=== PATIENT | male | born 1970 | race Caucasian/White ===

== ENCOUNTER 2019-04-15 20:20 | Emergency (ER) | payer OTHER ==
[~2019-04-15] VITALS: Ht 167.6 cm; Wt 68.2 kg
[2019-04-15 20:49] VITALS: BP 132/77
[2019-04-15 21:41] LABS: BASO # 0.1 x10^3/uL (0.0-0.2); BASO % 1 % (0-3); EOS % 0 % (0-3); HEMATOCRIT 40.9 % (39.0-53.0); HEMOGLOBIN 14.3 g/dL (13.0-17.5); LYMPH # 0.4 x10^3/uL (1.0-4.8); LYMPH % 3 % (24-48); MEAN CORPUSCULAR HEMOGLOBIN 31 pg (25-35); MEAN CORPUSCULAR HGB CONC 35 g/dL (31-37); MEAN CORPUSCULAR VOLUME 89 fL (79-100); MONO # 0.6 x10^3/uL (0.0-1.1); MONO % 5 % (0-9); NEUT % 91 % (31-73); PLATELET COUNT 174 x10^3/uL (140-400); RED BLOOD COUNT 4.58 x10^6/uL (4.30-5.70); WHITE BLOOD COUNT 13.1 x10^3/uL (4.0-11.0)
[2019-04-15 21:50] LABS: CALCIUM 8.6 mg/dL (8.5-10.1); CREATININE 1.6 mg/dL (0.7-1.3); GFR 45.8; POTASSIUM 4.1 mmol/L (3.5-5.1)
[2019-04-15 21:57] LABS: ALBUMIN 3.7 g/dL (3.4-5.0); ALBUMIN/GLOBULIN RATIO 1.2 (1.0-1.7); TOTAL BILIRUBIN 0.4 mg/dL (0.2-1.0); TOTAL PROTEIN 6.9 g/dL (6.4-8.2); URIC ACID 5.6 mg/dL (3.5-7.2)
--- NOTE | 2019-04-15 22:04 | RAD ---
Right Lower Extremity Venous Doppler Ultrasound History: Comparison: None Procedure: Color flow, duplex, spectral analysis and 2D images are obtained with and without compression in the area of the common femoral vein, superficial femoral vein - femoral vein junction, main femoral vein (superficial femoral vein) and popliteal vein. Veins of the proximal calf are also imaged. Findings: There is normal duplex flow, color flow and compressibility of all visualized vein segments. No evidence of deep venous thrombus is present. There is complex fluid anterior to the patella. Impression: No evidence of DVT. Edema anteriorly could be secondary to bursitis. Electronically signed by: Gaston Fernandez III, MD (04/15/2019 10:01 PM) [facility]
[2019-04-15 22:20] LABS: % BANDS 12 % (0-9); % BASOS 1 % (0-3); % LYMPHS 6 % (24-48); % MONOS 8 % (0-10); % SEGS 73 % (35-66); PLT ESTIMATE ADEQUATE (ADEQUATE)
[2019-04-15] MEDS ORDERED: AMOX1TAB61 PO (22:52)
[2019-04-15] MEDS ORDERED: DOXY100C2 PO (22:52)
--- NOTE | 2019-04-15 22:52 | PHYS DOC ---
Past Medical History Past Medical History: No Pertinent History Past Surgical History: Tonsillectomy Additional Past Surgical Histo: RIGHT ANKLE SX Alcohol Use: None Adult General Chief Complaint Chief Complaint: KNEE SWELLING HPI HPI Patient is a 49 year old male who presents with R knee pain that has been ongoing since last night. He states he had a cut on the front of his knee. Denies any other symptoms. Complete ROS were reviewed and found to be within normal limits, except as documented in the HPI Allergies Allergies Allergies Coded Allergies Type Severity Reaction Last Updated Verified No Known Drug Allergies 04/15/19 No Physical Exam Physical Exam Constitutional: Well developed, well nourished, no acute distress, non-toxic appearance. [] HENT: Normocephalic, atraumatic, bilateral external ears normal, oropharynx moist, no oral exudates, nose normal. [] Eyes: PERRLA, EOMI, conjunctiva normal, no discharge. [] Back: No tenderness, no CVA tenderness. [] Extremities: Tenderness to R knee with erythema. Able to fully straighten knee. Has cut on anterior of knee. Neurologic: Alert and oriented X 3, normal motor function, normal sensory function, no focal deficits noted. [] Psychologic: Affect normal, judgement normal, mood normal. [] Current Patient Data Vital Signs Vital Signs Date Time Temp Pulse Resp B/P (MAP) Pulse Ox O2 Delivery O2 Flow Rate FiO2 04/15/19 20:49 100.7 109 18 132/77 (95) 98 Room Air 100.7 Lab Values Laboratory Tests Test 04/15/19 21:33 White Blood Count 13.1 x10^3/uL (4.0-11.0) H Red Blood Count 4.58 x10^6/uL (4.30-5.70) Hemoglobin 14.3 g/dL (13.0-17.5) Hematocrit 40.9 % (39.0-53.0) Mean Corpuscular Volume 89 fL (79-100) Mean Corpuscular Hemoglobin 31 pg (25-35) Mean Corpuscular Hemoglobin Concent 35 g/dL (31-37) Red Cell Distribution Width 13.0 % (11.5-14.5) Platelet Count 174 x10^3/uL (140-400) Neutrophils (%) (Auto) 91 % (31-73) H Lymphocytes (%) (Auto) 3 % (24-48) L Monocytes (%) (Auto) 5 % (0-9) Eosinophils (%) (Auto) 0 % (0-3) Basophils (%) (Auto) 1 % (0-3) Neutrophils # (Auto) 12.0 x10^3/uL (1.8-7.7) H Lymphocytes # (Auto) 0.4 x10^3/uL (1.0-4.8) L Monocytes # (Auto) 0.6 x10^3/uL (0.0-1.1) Eosinophils # (Auto) 0.0 x10^3/uL (0.0-0.7) Basophils # (Auto) 0.1 x10^3/uL (0.0-0.2) Segmented Neutrophils % 73 % (35-66) H Band Neutrophils % 12 % (0-9) H Lymphocytes % 6 % (24-48) L Monocytes % 8 % (0-10) Basophils % 1 % (0-3) Platelet Estimate Adequate (ADEQUATE) Sodium Level 143 mmol/L (136-145) Potassium Level 4.1 mmol/L (3.5-5.1) Chloride Level 105 mmol/L (98-107) Carbon Dioxide Level 30 mmol/L (21-32) Anion Gap 8 (6-14) Blood Urea Nitrogen 25 mg/dL (8-26) Creatinine 1.6 mg/dL (0.7-1.3) H Estimated GFR (Cockcroft-Gault) 45.8 BUN/Creatinine Ratio 16 (6-20) Glucose Level 99 mg/dL (70-99) Uric Acid 5.6 mg/dL (3.5-7.2) Calcium Level 8.6 mg/dL (8.5-10.1) Total Bilirubin 0.4 mg/dL (0.2-1.0) Aspartate Amino Transferase (AST) 27 U/L (15-37) Alanine Aminotransferase (ALT) 27 U/L (16-63) Alkaline Phosphatase 55 U/L (46-116) Total Protein 6.9 g/dL (6.4-8.2) Albumin 3.7 g/dL (3.4-5.0) Albumin/Globulin Ratio 1.2 (1.0-1.7) Laboratory Tests 04/15/19 21:33 Laboratory Tests 04/15/19 21:33 EKG EKG [] Radiology/Procedures Radiology/Procedures [] Course & Med Decision Making Course & Med Decision Making Pertinent Labs and Imaging studies reviewed. (See chart for details) Will get labs and ultrasound. Workup is unremarkable. Ultrasound is negative for DVT. Appears to have cellulitis of knee. Will place on Doxycycline and Augmentin. Dragon Disclaimer Dragon Disclaimer This electronic medical record was generated, in whole or in part, using a voice recognition dictation system. Departure Departure Impression: Primary Impression: Cellulitis Disposition: HOME, SELF-CARE Condition: STABLE Referrals: NO PCP (PCP) Patient Instructions: Cellulitis Additional Instructions: Thank you for visiting [facility]. We appreciate you trusting us with your care. If any additional problems come up don't hesitate to return to visit us. Please follow up with your primary care provider so they can plan add itional care if needed and know about the problem that you had. If symptoms worsen come back to the Emergency Department. Any concerning symptoms that start such as chest pain, shortness of air, weakness or numbness on one side of the body, running high fevers or any other concerning symptoms return to the ER. You have been prescribed an antibiotic today to help fight your infection. Please take all of the antibiotic as directed. If after 48 hours the infection is not improving, please return for more care. If the infection worsens, return to ER for additional care. Scripts Amoxicillin/Potassium Clav (AUGMENTIN 875-125 TABLET) 1 Each Tablet 1 TAB PO BID for 7 Days, #14 TAB 0 Refills Prov: LORRAINE TORRE APRN 04/15/19 Doxycycline Hyclate (DOXYCYCLINE HYCLATE) 100 Mg Capsule 1 CAP PO BID for 10 Days, #20 CAP Prov: LORRAINE TORRE APRN 04/15/19 Problem Qualifiers Primary Impression: Cellulitis Site of cellulitis: extremity Site of cellulitis of extremity: lower extremity Laterality: right Qualified Codes: L03.115 - Cellulitis of right lower limb LORRAINE TORRE APRN Apr 15, 2019 22:52
== END 2019-04-15 23:04 | disposition home or self-care (01) ==
LOC: ER 20:20
DX: L03.115 Cellulitis of right lower limb (principal)
CPT/HCPCS: 36415; 80053; 84550; 85007; 85025; 93971; 99285-25

== ENCOUNTER 2019-05-02 12:01 | Observation (INO) | payer OTHER ==
[~2019-05-02] VITALS: Ht 167.6 cm; Wt 70.1 kg
[~2019-05-02 12:01] MED LIST: ACET325T9 PO; ALBU2.5V8 NEB; AMOX1TAB61 PO; ASPI325T8 PO; DOCU-153 PO; DOXY100C2 PO; HYDR-2765 PO; LACT1CAP19 PO; LINE600T12 PO; MULT1TAB90 PO
--- NOTE | 2019-05-02 13:11 | RAD ---
EXAM: Chest, single view. HISTORY: Syncope. COMPARISON: None. FINDINGS: A frontal view of the chest is obtained. There is no infiltrate, pleural effusion or pneumothorax. The heart is normal in size. IMPRESSION: No acute pulmonary finding. Electronically signed by: Jayleen Mccann MD (05/02/2019 1:08 PM) [facility]
[2019-05-02 13:15] LABS: BASO # 0.1 x10^3/uL (0.0-0.2); BASO % 1 % (0-3); EOS # 0.1 x10^3/uL (0.0-0.7); EOS % 1 % (0-3); HEMATOCRIT 36.5 % (39.0-53.0); HEMOGLOBIN 12.2 g/dL (13.0-17.5); LYMPH # 1.6 x10^3/uL (1.0-4.8); LYMPH % 19 % (24-48); MEAN CORPUSCULAR HEMOGLOBIN 31 pg (25-35); MEAN CORPUSCULAR HGB CONC 34 g/dL (31-37); MEAN CORPUSCULAR VOLUME 91 fL (79-100); MONO # 0.6 x10^3/uL (0.0-1.1); MONO % 7 % (0-9); NEUT # 6.4 x10^3/uL (1.8-7.7); NEUT % 73 % (31-73); PLATELET COUNT 460 x10^3/uL (140-400); RED BLOOD COUNT 4.01 x10^6/uL (4.30-5.70); RED CELL DISTRIBUTION WIDTH 13.4 % (11.5-14.5); WHITE BLOOD COUNT 8.7 x10^3/uL (4.0-11.0)
[2019-05-02 13:26] LABS: CREATININE 1.3 mg/dL (0.7-1.3); GFR 58.2; POTASSIUM 4.2 mmol/L (3.5-5.1)
[2019-05-02 13:36] LABS: ALBUMIN/GLOBULIN RATIO 0.6 (1.0-1.7); MAGNESIUM 2.1 mg/dL (1.8-2.4); TOTAL BILIRUBIN 0.5 mg/dL (0.2-1.0); TOTAL PROTEIN 7.7 g/dL (6.4-8.2)
--- NOTE | 2019-05-02 13:44 | RAD ---
EXAM: CT Head without IV contrast INDICATION: Syncope, fall, head and facial injury. TECHNIQUE: Multi-detector row CT images were obtained of the head without the use of IV contrast. All CT scans performed at this facility utilize dose optimization techniques as appropriate to the exam, including the following: Automated exposure control and adjustment of the mA and/or KV according to patient size (this includes techniques or standardized protocols for targeted exams where dose is indication/reason for exam). COMPARISON: None FINDINGS: BRAIN PARENCHYMA: No evidence of acute intraparenchymal hemorrhage or infarct. No abnormal parenchymal density or mass. VENTRICLES & EXTRA-AXIAL SPACES: Ventricles are within normal limits. Basilar cisterns are patent. No pathologic extra-axial fluid collection or mass. ORBITS: Orbital contents are unremarkable. SINUSES: Visualized paranasal sinuses and mastoid air cells are clear. OSSEOUS & SOFT TISSUES: Calvarium and skull base are intact. IMPRESSION: No acute intracranial pathology. EXAM: CT Maxillofacial with IV contrast INDICATION: Syncope, fall, head and facial injury. TECHNIQUE: Multi-detector row CT images were obtained through the maxillofacial region with the use of IV contrast. Post-processing reconstructed images were obtained for interpretation. All CT scans performed at this facility utilize dose optimization techniques as appropriate to the exam, including the following: Automated exposure control and adjustment of the mA and/or KV according to patient size (this includes techniques or standardized protocols for targeted exams where dose is indication/reason for exam). IV CONTRAST: Administered COMPARISON: None FINDINGS: OSSEOUS: No evidence of fracture or bone destruction. Mild degenerative spondylosis at C3-C4 in the upper cervical spine is incidentally noted. VISUALIZED INTRACRANIAL STRUCTURES: Unremarkable. ORBITS: Orbital contents are unremarkable.. SINUSES: Visualized paranasal sinuses and mastoid air cells are clear. SOFT TISSUES: Unremarkable. IMPRESSION: Normal CT maxillofacial with contrast. Electronically signed by: Rodney Martiin MD (05/02/2019 1:41 PM) [facility]
--- NOTE | 2019-05-02 13:51 | EKG ---
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
[2019-05-02] MEDS ORDERED: IOHEXOL 350 MG/ML 100 ML VIAL. IV ONE (14:15)
[2019-05-02] MEDS ORDERED: IV NORMAL SALINE 1000ML BAG 1,000 ML IV ONE ×2 (14:30→15:30)
--- NOTE | 2019-05-02 14:36 | RAD ---
CTA scan of the Chest with Contrast (Pulmonary Embolism protocol) 05/02/2019 Clinical History: History of recent surgery. Syncope. Elevated d-dimer. Technique: After the intravenous administration of 75 cc of Omnipaque 350, contiguous, 0.625 mm axial sections were obtained through the chest. 2 mm axial and 3D MIP coronal and sagittal reconstructed images were obtained. One or more of the following individualized dose reduction techniques were utilized for this study: 1. Automated exposure control. 2. Adjustment of the mA and/or kV according to patient size. 3. Use of iterative reconstruction technique. Findings: No filling defect is seen within the major branches of either pulmonary artery. There is no CT evidence of pulmonary embolism. The heart and thoracic aorta are within normal limits. No pulmonary infiltrate, pleural effusion or pneumothorax is seen. Impression: There is no CT evidence of pulmonary embolism. Electronically signed by: Parveen Looney MD (05/02/2019 2:34 PM) [id number]
--- NOTE | 2019-05-02 14:45 | PHYS DOC ---
Past Medical History Past Medical History: Other Additional Past Medical Histor: SEPSIS/CELLULITIS Past Surgical History: Tonsillectomy Additional Past Surgical Histo: RIGHT ANKLE SX Smoking Status: Never Smoker Alcohol Use: Occasionally Adult General Chief Complaint Chief Complaint: SYNCOPE HPI HPI Patient is a 49 year old male with history of right knee cellulitis and abscess and sepsis secondary to knee infection with recent hospitalization on April 23 who presents with complaint of syncope. Patient states he was initially over at 5:30 this morning and felt nauseous and hot and had syncope iin the shower and tried to get up after 1 minute and had another episode of syncope with a fall and injury to his nose. Patient tried to call her physician after opening the office and they recommended to come to the emergency room. Patient states he had some episodes of shortness of breath for the last couple days and denies chest pain, fever and chills, focal neuro deficit. Review of Systems Review of Systems Constitutional: Denies fever or chills [] Eyes: Denies change in visual acuity, redness, or eye pain [] HENT: Denies nasal congestion or sore throat [] Respiratory: Denies cough or shortness of breath [] Cardiovascular: No additional information not addressed in HPI [] GI: Denies abdominal pain, nausea, vomiting, bloody stools or diarrhea [] : Denies dysuria or hematuria [] Musculoskeletal: Denies back pain or joint pain [] Integument: Denies rash or skin lesions [] Neurologic: Denies headache, focal weakness or sensory changes [] Endocrine: Denies polyuria or polydipsia [] All other systems were reviewed and found to be within normal limits, except as documented in this note. Current Medications Current Medications Current Medications Medications (Trade) Dose Ordered Sig/Sindhu Start Time Stop Time Status Last Admin Dose Admin Iohexol (Omnipaque 350 Mg/ml) 75 ml 1X ONCE 05/02/19 14:15 05/02/19 14:20 DC 05/02/19 14:16 75 ML Sodium Chloride 1,000 ml @ 1,000 mls/hr 1X ONCE 05/02/19 14:30 05/02/19 15:29 DC 05/02/19 15:28 1,000 MLS/HR Allergies Allergies Allergies Coded Allergies Type Severity Reaction Last Updated Verified vancomycin Allergy Intermediate RASH/ITCHING 04/17/19 Yes Physical Exam Physical Exam Constitutional: Well developed, well nourished, mild distress, non-toxic appearance. [] HENT: Normocephalic, contusion and small abrasion of base of nose Eyes: PERRLA, EOMI, conjunctiva normal, no discharge. [] Neck: Normal range of motion, no tenderness, supple, no stridor. [] Cardiovascular:Heart rate regular rhythm, no murmur [] Lungs & Thorax: Bilateral breath sounds clear to auscultation [] Abdomen: Bowel sounds normal, soft, no tenderness, no masses, no pulsatile masses. [] Skin: Warm, dry, no erythema, no rash. [] Back: No tenderness, no CVA tenderness. [] Extremities: Right lower extremity with trace edema of leg and moderate edema and mild erythema of knee Neurologic: Alert and oriented X 3, no focal deficits noted. [] Psychologic: Affect normal, judgement normal, mood normal. [] Current Patient Data Vital Signs Vital Signs Date Time Temp Pulse Resp B/P (MAP) Pulse Ox O2 Delivery O2 Flow Rate FiO2 05/02/19 13:14 86 19 109/68 (82) 99 Room Air 05/02/19 12:15 98.1 98.1 Lab Values Laboratory Tests Test 05/02/19 12:33 White Blood Count 8.7 x10^3/uL (4.0-11.0) Red Blood Count 4.01 x10^6/uL (4.30-5.70) L Hemoglobin 12.2 g/dL (13.0-17.5) L Hematocrit 36.5 % (39.0-53.0) L Mean Corpuscular Volume 91 fL (79-100) Mean Corpuscular Hemoglobin 31 pg (25-35) Mean Corpuscular Hemoglobin Concent 34 g/dL (31-37) Red Cell Distribution Width 13.4 % (11.5-14.5) Platelet Count 460 x10^3/uL (140-400) H Neutrophils (%) (Auto) 73 % (31-73) Lymphocytes (%) (Auto) 19 % (24-48) L Monocytes (%) (Auto) 7 % (0-9) Eosinophils (%) (Auto) 1 % (0-3) Basophils (%) (Auto) 1 % (0-3) Neutrophils # (Auto) 6.4 x10^3/uL (1.8-7.7) Lymphocytes # (Auto) 1.6 x10^3/uL (1.0-4.8) Monocytes # (Auto) 0.6 x10^3/uL (0.0-1.1) Eosinophils # (Auto) 0.1 x10^3/uL (0.0-0.7) Basophils # (Auto) 0.1 x10^3/uL (0.0-0.2) D-Dimer (Lara) 4.97 ug/mlFEU (0.00-0.50) H Sodium Level 141 mmol/L (136-145) Potassium Level 4.2 mmol/L (3.5-5.1) Chloride Level 104 mmol/L (98-107) Carbon Dioxide Level 31 mmol/L (21-32) Anion Gap 6 (6-14) Blood Urea Nitrogen 24 mg/dL (8-26) Creatinine 1.3 mg/dL (0.7-1.3) Estimated GFR (Cockcroft-Gault) 58.2 BUN/Creatinine Ratio 18 (6-20) Glucose Level 100 mg/dL (70-99) H Lactic Acid Level 1.3 mmol/L (0.4-2.0) Calcium Level 9.0 mg/dL (8.5-10.1) Magnesium Level 2.1 mg/dL (1.8-2.4) Total Bilirubin 0.5 mg/dL (0.2-1.0) Aspartate Amino Transferase (AST) 18 U/L (15-37) Alanine Aminotransferase (ALT) 32 U/L (16-63) Alkaline Phosphatase 80 U/L (46-116) Creatine Kinase 45 U/L (39-308) Troponin I Quantitative < 0.017 ng/mL (0.000-0.055) Total Protein 7.7 g/dL (6.4-8.2) Albumin 3.0 g/dL (3.4-5.0) L Albumin/Globulin Ratio 0.6 (1.0-1.7) L Laboratory Tests 05/02/19 12:33 Laboratory Tests 05/02/19 12:33 EKG EKG EKG interpreted by me. EKG at 1222 showed normal sinus rhythm at rate of 86, nonspecific ST abnormality with artifact, no acute ST and T-wave elevation. Radiology/Procedures Radiology/Procedures [][facility] [address] [place] [address] IMAGING REPORT Signed PATIENT: MYNOR ZAVALETA AACCOUNT: [id number] : 1970 LOCATION: ER AGE: 49 SEX: M EXAM STATUS: REG ER ORD. PHYSICIAN: GABRIELLE GALVAN MD REASON: syncope PROCEDURE: PORTABLE CHEST 1V EXAM: Chest, single view. HISTORY: Syncope. COMPARISON: None. FINDINGS: A frontal view of the chest is obtained. There is no infiltrate, pleural effusion or pneumothorax. The heart is normal in size. IMPRESSION: No acute pulmonary finding. Electronically signed by: Jayleen Alvarez MD (05/02/2019 1:08 PM) [facility] DICTATED and SIGNED BY: JAYLEEN ALVAREZ MD DATE: 05/02/19 1308 [facility] [address] [place] [address] IMAGING REPORT Signed PATIENT: MYNOR ZAVALETA AACCOUNT: [id number] : 1970 LOCATION: ER AGE: 49 SEX: M EXAM STATUS: REG ER ORD. PHYSICIAN: GABRIELLE GALVAN MD REASON: syncope, fall, head and facial injury PROCEDURE: CT HEAD AND MAXILLOFACIAL WO EXAM: CT Head without IV contrast INDICATION: Syncope, fall, head and facial injury. TECHNIQUE: Multi-detector row CT images were obtained of the head without the use of IV contrast. All CT scans performed at this facility utilize dose optimization techniques as appropriate to the exam, including the following: Automated exposure control and adjustment of the mA and/or KV according to patient size (this includes techniques or standardized protocols for targeted exams where dose is indication/reason for exam). COMPARISON: None FINDINGS: BRAIN PARENCHYMA: No evidence of acute intraparenchymal hemorrhage or infarct. No abnormal parenchymal density or mass. VENTRICLES & EXTRA-AXIAL SPACES: Ventricles are within normal limits. Basilar cisterns are patent. No pathologic extra-axial fluid collection or mass. ORBITS: Orbital contents are unremarkable. SINUSES: Visualized paranasal sinuses and mastoid air cells are clear. OSSEOUS & SOFT TISSUES: Calvarium and skull base are intact. IMPRESSION: No acute intracranial pathology. EXAM: CT Maxillofacial with IV contrast INDICATION: Syncope, fall, head and facial injury. TECHNIQUE: Multi-detector row CT images were obtained through the maxillofacial region with the use of IV contrast. Post-processing reconstructed images were obtained for interpretation. All CT scans performed at this facility utilize dose optimization techniques as appropriate to the exam, including the following: Automated exposure control and adjustment of the mA and/or KV according to patient size (this includes techniques or standardized protocols for targeted exams where dose is indication/reason for exam). IV CONTRAST: Administered COMPARISON: None FINDINGS: OSSEOUS: No evidence of fracture or bone destruction. Mild degenerative spondylosis at C3-C4 in the upper cervical spine is incidentally noted. VISUALIZED INTRACRANIAL STRUCTURES: Unremarkable. ORBITS: Orbital contents are unremarkable.. SINUSES: Visualized paranasal sinuses and mastoid air cells are clear. SOFT TISSUES: Unremarkable. IMPRESSION: Normal CT maxillofacial with contrast. Electronically signed by: Elroy Martini MD (05/02/2019 1:41 PM) [facility] DICTATED and SIGNED BY: ELROY MARTINI MD DATE: 05/02/19 1341 [facility] [address] [place] [address] IMAGING REPORT Signed PATIENT: MYNOR ZAVALETA AACCOUNT: [id number] : 1970 LOCATION: ER AGE: 49 SEX: M EXAM STATUS: REG ER ORD. PHYSICIAN: GABRIELLE GALVAN MD REASON: recent surgery, syncope, elevated d-dimer PROCEDURE: CT ANGIOGRAPHY CHEST CTA scan of the Chest with Contrast (Pulmonary Embolism protocol) 05/02/2019 Clinical History: History of recent surgery. Syncope. Elevated d-dimer. Technique: After the intravenous administration of 75 cc of Omnipaque 350, contiguous, 0.625 mm axial sections were obtained through the chest. 2 mm axial and 3D MIP coronal and sagittal reconstructed images were obtained. One or more of the following individualized dose reduction techniques were utilized for this study: 1. Automated exposure control. 2. Adjustment of the mA and/or kV according to patient size. 3. Use of iterative reconstruction technique. Findings: No filling defect is seen within the major branches of either pulmonary artery. There is no CT evidence of pulmonary embolism. The heart and thoracic aorta are within normal limits. No pulmonary infiltrate, pleural effusion or pneumothorax is seen. Impression: There is no CT evidence of pulmonary embolism. Electronically signed by: Kehinde Looney MD (05/02/2019 2:34 PM) [id number] DICTATED and SIGNED BY: KEHINDE LOONEY MD DATE: 05/02/19 1434 Course & Med Decision Making Course & Med Decision Making Pertinent Labs and Imaging studies reviewed. (See chart for details) Evaluation of patient in ER showed 49-year-old male patient with recent hospitalization and complaining of episode of syncope. Patient had unremarkable physical exam except for improving right knee cellulitis. Patient had elevation of d-dimer with negative CT of chest for PE. Patient treated with IV fluids. Patient requiring admission for further evaluation and treatment. Discussed with Dr. Flores who is in agreement with admission. Discussed findings and plan with patient and family, who acknowledge understanding and agreement. Dragon Disclaimer Dragon Disclaimer This electronic medical record was generated, in whole or in part, using a voice recognition dictation system. Departure Departure Impression: Primary Impression: Syncope Disposition: 09 ADMITTED INPATIENT (at 1444) Admitting Physician: JAJA (Dr. Flores accepted admission at 1456) Condition: IMPROVED Referrals: NO PCP (PCP) Problem Qualifiers Primary Impression: Syncope Syncope type: unspecified Qualified Codes: R55 - Syncope and collapse GABRIELLE GALVAN MD May 02, 2019 14:45
--- NOTE | 2019-05-02 15:19 | PDOC1 ---
History and Physical Date of Admission Date of Admission DATE: 05/02/19 TIME: 15:11 Identification/Chief Complaint Chief Complaint i passed out Source Source: Chart review, Patient History of Present Illness History of Present Illness Very pleasant 49 year old with no significant PMhx who presents to the hospital after 2 episodes of syncope and collapse this morning while taking a shower for the first time. denies any prodrome of chest pain sob palpitations prior to collapse. no reported focal weakness. hx not consistent with seizure like episode. denies any cardiac hx. oral intake has been good and he ate breakfast this AM prior to collapse. patient recently admitted last week for right knee bursitis s/p I and D. sent home on zyvox. states he has been intermittently nauseous but no vomiting for abx. was sent home on 2 week course of zyvox. unclear of orthostatics checked in ED. all imaging negative in ED including chest xray, CT chest, CT head and CT face. no fractures. EKG NSR. trops negati ve. [facility] called for admission and further evaluation. Past Medical History Cardiovascular: No pertinent hx Past Surgical History Past Surgical History: No pertinent history Family History Family History no cardiac hx Family History: Other Social History Smoke: No ALCOHOL: none Drugs: None Current Problem List Problem List Problems Medical Problems: (1) Syncope Status: Acute Current Medications Current Medications Current Medications Iohexol (Omnipaque 350 Mg/ml) 75 ml 1X ONCE IV Last administered on 05/02/19at 14:16; Start 05/02/19 at 14:15; Stop 05/02/19 at 14:20; Status DC Sodium Chloride 1,000 ml @ 1,000 mls/hr 1X ONCE IV ; Start 05/02/19 at 14:30; Stop 05/02/19 at 15:29 Active Scripts Active Culturelle (Lactobacillus Rhamnosus Gg) 1 Each Cap.sprink 1 Cap PO BID 30 Days Dok (Docusate Sodium) 100 Mg Capsule 100 Mg PO BID 10 Days Tylenol (Acetaminophen) 325 Mg Tablet 650 Mg PO PRN Q4HRS PRN 10 Days Thera-M Tablet (Multivits,Ca,Minerals/Iron/Fa) 1 Each Tablet 1 Tab PO DAILY Hydrocodone-Apap 7.5-325 (Hydrocodone Bit/Acetaminophen) 1 Tab Tablet 1 Tab PO PRN Q4HRS PRN Aspirin 325 Mg Tablet 325 Mg PO DAILYWBKFT Zyvox (Linezolid) 600 Mg Tablet 600 Mg PO BID Allergies Allergies: Coded Allergies: vancomycin (Verified Allergy, Intermediate, RASH/ITCHING, 04/17/19) ROS Review of System CONSTITUTIONAL: No fever or chills EYES: No recent changes SKIN: No rash or itching CARDIOVASCULAR: No chest pain, syncope, palpitations, or edema RESPIRATORY: No SOB or cough GASTROINTESTINAL: No nausea, vomiting or abdominal pain NEUROLOGICAL: No headaches or weakness ENDOCRINE: No cold or heat intolerance GENITOURINARY: No urgency or frequency of urination MUSCULOSKELETAL: No back pain or joint pain LYMPHATICS: No enlarged lymph nodes PSYCHIATRIC: No anxiety or depression Physical Exam Physical Exam GENERAL: No apparent distress. Alert and oriented. HEENT: Head normocephalic, atraumatic. NECK: Supple LUNGS: Clear to auscultation. HEART: RRR, S1, S2 present, pulses intact ABDOMEN: Soft, positive bowel sounds. EXTREMITIES: No cyanosis or edema. NEUROLOGIC: Normal speech, normal tone PSYCHIATRIC: Normal affect, normal mood. SKIN: No ulceration. Vitals Vitals Vital Signs Date Time Temp Pulse Resp B/P (MAP) Pulse Ox O2 Delivery O2 Flow Rate FiO2 05/02/19 13:14 86 19 109/68 (82) 99 Room Air 05/02/19 12:15 98.1 98.1 Labs Labs Laboratory Tests Test 05/02/19 12:33 White Blood Count 8.7 x10^3/uL (4.0-11.0) Red Blood Count 4.01 x10^6/uL (4.30-5.70) Hemoglobin 12.2 g/dL (13.0-17.5) Hematocrit 36.5 % (39.0-53.0) Mean Corpuscular Volume 91 fL (79-100) Mean Corpuscular Hemoglobin 31 pg (25-35) Mean Corpuscular Hemoglobin Concent 34 g/dL (31-37) Red Cell Distribution Width 13.4 % (11.5-14.5) Platelet Count 460 x10^3/uL (140-400) Neutrophils (%) (Auto) 73 % (31-73) Lymphocytes (%) (Auto) 19 % (24-48) Monocytes (%) (Auto) 7 % (0-9) Eosinophils (%) (Auto) 1 % (0-3) Basophils (%) (Auto) 1 % (0-3) Neutrophils # (Auto) 6.4 x10^3/uL (1.8-7.7) Lymphocytes # (Auto) 1.6 x10^3/uL (1.0-4.8) Monocytes # (Auto) 0.6 x10^3/uL (0.0-1.1) Eosinophils # (Auto) 0.1 x10^3/uL (0.0-0.7) Basophils # (Auto) 0.1 x10^3/uL (0.0-0.2) D-Dimer (Lara) 4.97 ug/mlFEU (0.00-0.50) Sodium Level 141 mmol/L (136-145) Potassium Level 4.2 mmol/L (3.5-5.1) Chloride Level 104 mmol/L (98-107) Carbon Dioxide Level 31 mmol/L (21-32) Anion Gap 6 (6-14) Blood Urea Nitrogen 24 mg/dL (8-26) Creatinine 1.3 mg/dL (0.7-1.3) Estimated GFR (Cockcroft-Gault) 58.2 BUN/Creatinine Ratio 18 (6-20) Glucose Level 100 mg/dL (70-99) Lactic Acid Level 1.3 mmol/L (0.4-2.0) Calcium Level 9.0 mg/dL (8.5-10.1) Magnesium Level 2.1 mg/dL (1.8-2.4) Total Bilirubin 0.5 mg/dL (0.2-1.0) Aspartate Amino Transf (AST/SGOT) 18 U/L (15-37) Alanine Aminotransferase (ALT/SGPT) 32 U/L (16-63) Alkaline Phosphatase 80 U/L (46-116) Creatine Kinase 45 U/L (39-308) Troponin I Quantitative < 0.017 ng/mL (0.000-0.055) Total Protein 7.7 g/dL (6.4-8.2) Albumin 3.0 g/dL (3.4-5.0) Albumin/Globulin Ratio 0.6 (1.0-1.7) Laboratory Tests Test 05/02/19 12:33 White Blood Count 8.7 x10^3/uL (4.0-11.0) Red Blood Count 4.01 x10^6/uL (4.30-5.70) Hemoglobin 12.2 g/dL (13.0-17.5) Hematocrit 36.5 % (39.0-53.0) Mean Corpuscular Volume 91 fL (79-100) Mean Corpuscular Hemoglobin 31 pg (25-35) Mean Corpuscular Hemoglobin Concent 34 g/dL (31-37) Red Cell Distribution Width 13.4 % (11.5-14.5) Platelet Count 460 x10^3/uL (140-400) Neutrophils (%) (Auto) 73 % (31-73) Lymphocytes (%) (Auto) 19 % (24-48) Monocytes (%) (Auto) 7 % (0-9) Eosinophils (%) (Auto) 1 % (0-3) Basophils (%) (Auto) 1 % (0-3) Neutrophils # (Auto) 6.4 x10^3/uL (1.8-7.7) Lymphocytes # (Auto) 1.6 x10^3/uL (1.0-4.8) Monocytes # (Auto) 0.6 x10^3/uL (0.0-1.1) Eosinophils # (Auto) 0.1 x10^3/uL (0.0-0.7) Basophils # (Auto) 0.1 x10^3/uL (0.0-0.2) D-Dimer (Lara) 4.97 ug/mlFEU (0.00-0.50) Sodium Level 141 mmol/L (136-145) Potassium Level 4.2 mmol/L (3.5-5.1) Chloride Level 104 mmol/L (98-107) Carbon Dioxide Level 31 mmol/L (21-32) Anion Gap 6 (6-14) Blood Urea Nitrogen 24 mg/dL (8-26) Creatinine 1.3 mg/dL (0.7-1.3) Estimated GFR (Cockcroft-Gault) 58.2 BUN/Creatinine Ratio 18 (6-20) Glucose Level 100 mg/dL (70-99) Lactic Acid Level 1.3 mmol/L (0.4-2.0) Calcium Level 9.0 mg/dL (8.5-10.1) Magnesium Level 2.1 mg/dL (1.8-2.4) Total Bilirubin 0.5 mg/dL (0.2-1.0) Aspartate Amino Transf (AST/SGOT) 18 U/L (15-37) Alanine Aminotransferase (ALT/SGPT) 32 U/L (16-63) Alkaline Phosphatase 80 U/L (46-116) Creatine Kinase 45 U/L (39-308) Troponin I Quantitative < 0.017 ng/mL (0.000-0.055) Total Protein 7.7 g/dL (6.4-8.2) Albumin 3.0 g/dL (3.4-5.0) Albumin/Globulin Ratio 0.6 (1.0-1.7) VTE Prophylaxis Ordered VTE Prophylaxis Devices: Yes VTE Pharmacological Prophylaxi: Yes Assessment/Plan Assessment/Plan ASSESSMENT syncope and collapse elevated d dimer, negative CT chest right knee infected bursitis s/p I and D PLAN obs under tele bed follow troponins check orthostatics check TTE IVF restart home meds dvt ppx: ambulatory full code patricia sunshine most likely SHORTY KELLER MD May 02, 2019 15:19
[2019-05-02] MEDS ORDERED: ACETAMINOPHEN 325 MG TABLET. PO PRN (15:30)
[2019-05-02 16:20] VITALS: BP 127/80
--- NOTE | 2019-05-02 16:46 | CARD ---
MR#: [id number] Date of Study: 05/02/2019 Ordering Physician: SHORTY KELLER, Referring Physician: SHORTY KELLER Tech: Navneet Diaz WILMAN APPROVED REPORT EXAM: Two-dimensional and M-mode echocardiogram with Doppler and color Doppler. Other Information Quality : GoodHR: 85bpm Rhythm : NSR INDICATION Syncope 2D DIMENSIONS RVDd3.3 (2.9-3.5cm)IVSd0.8 (0.7-1.1cm) Aortic Root(2D)2.9 (2.0-3.7cm)LVDd4.7 (3.9-5.9cm) LVOT Diameter2.1 (1.8-2.4cm)PWd0.8 (0.7-1.1cm) LVDs3.1 (2.5-4.0cm)FS (%) 34.3 % SV65.9 mlLVEF(%)63.3 (>50%) Aortic Valve AoV Peak Bradley.102.4cm/May Peak GR.4.2mmHg LVOT Peak Bradley.94.8cm/sAVA (VMAX)3.23cm2 Mitral Valve MV E Coysczia01.2cm/sMV DECEL IJCV477me MV A Hiwiggjd62.8cm/sE/A Ratio1.2 Pulmonary Valve PV Peak Qwwqfuki83.8cm/s Tricuspid Valve TR P. Ksmfnngv990yl/sRAP [id number] TR Peak Gr.69yaXiPRZY81ciMf Pulmonary Vein S1 Jfsdjlul33.5cm/sD2 Ykknwdgv44.3cm/s PVa [id number] LEFT VENTRICLE The left ventricle is normal size. There is normal left ventricular wall thickness. The left ventricu lar systolic function is normal and the ejection fraction is within normal range. The Ejection Fracti on is 60-65%. There is normal LV segmental wall motion. The left ventricular diastolic function and f illing is normal for age. There is no ventricular septal defect visualized. RIGHT VENTRICLE The right ventricle is normal size. There is normal right ventricular wall thickness. The right ventr icular systolic function is normal. ATRIA The left atrium size is normal. The right atrium size is normal. The interatrial septum is intact wit h no evidence for an atrial septal defect or patent foramen ovale as noted on 2-D or Doppler imaging. Injection of bubbles documented no interatrial shunt. AORTIC VALVE The aortic valve is normal in structure and function. Doppler and Color Flow revealed no significant aortic regurgitation. There is no significant aortic valvular stenosis. MITRAL VALVE The mitral valve is normal in structure and function. There is no evidence of mitral valve prolapse. There is no mitral valve stenosis. Doppler and Color-flow revealed trace to mild mitral regurgitation . TRICUSPID VALVE The tricuspid valve is normal in structure and function. Doppler and Color Flow revealed trace tricus pid regurgitation. PAP is estimated at 21 mmHg. There is no tricuspid valve stenosis. PULMONIC VALVE The pulmonary valve is normal in structure and function. Doppler and Color Flow revealed trace pulmon ic valvular regurgitation. There is no pulmonic valvular stenosis. GREAT VESSELS The aortic root is normal in size. The ascending aorta is normal in size. The pulmonary artery is nor mal. The IVC is normal in size and collapses >50% with inspiration. PERICARDIAL EFFUSION There is no pleural effusion. There is no evidence of significant pericardial effusion. Critical Notification Critical Value: No <Conclusion> The left ventricle is normal size. The left ventricular systolic function is normal and the ejection fraction is within normal range. The Ejection Fraction is 60-65%. The interatrial septum is intact with no evidence for an atrial septal defect or patent foramen ovale as noted on 2-D or Doppler imaging. Injection of bubbles documented no interatrial shunt. Doppler and Color Flow revealed no significant aortic regurgitation. There is no significant aortic valvular stenosis. Doppler and Color-flow revealed trace to mild mitral regurgitation. Doppler and Color Flow revealed trace tricuspid regurgitation. PAP is estimated at 21 mmHg. Signed by : Daquan Tran MD Electronically Approved : 05/02/2019 16:45:29
[2019-05-02 17:08] VITALS: BP 155/70
[2019-05-02 19:17] VITALS: BP 115/69
[2019-05-02] MEDS ORDERED: ONDANSETRON PF 4 MG/2 ML VIAL. IVP PRN ×2 (20:15→20:45)
[2019-05-02] MEDS: LACTOBACILLUS RHAMNOSUS GG 1 CAPSULE. PO SCH (20:53)
[2019-05-02] MEDS: LINEZOLID 600 MG TABLET PO SCH (20:53)
[2019-05-02] MEDS: DOCUSATE SODIUM 100 MG CAPSULE. PO SCH (20:54)
[2019-05-02 23:29] VITALS: BP 119/69
[2019-05-03 03:55] VITALS: BP 111/63
[2019-05-03 07:00] VITALS: BP 114/72
[2019-05-03] MEDS ORDERED: ASPIRIN 325 MG TABLET PO SCH (08:00)
[2019-05-03] MEDS: LINEZOLID 600 MG TABLET PO SCH (08:29)
[2019-05-03] MEDS: LACTOBACILLUS RHAMNOSUS GG 1 CAPSULE. PO SCH (08:29)
[2019-05-03] MEDS: DOCUSATE SODIUM 100 MG CAPSULE. PO SCH (08:35)
[2019-05-03] MEDS ORDERED: MULTIVITAMIN with MINERAL TABLET. PO SCH (09:00)
--- NOTE | 2019-05-03 10:39 | NUR ---
SS following for discharge planning. SS reviewed pt chart. Pt is from home with spouse and is currently on room air. SS will continue to follow for discharge planning.
[2019-05-03 11:00] VITALS: BP 114/74
--- NOTE | 2019-05-03 12:38 | PDOC3 ---
Discharge Summary Visit Information Date of Admission: May 02, 2019 Date of Discharge: May 03, 2019 Final Diagnosis Problems Medical Problems: (1) Syncope Status: Acute Brief Hospital Course Allergies Allergies Coded Allergies Type Severity Reaction Last Updated Verified vancomycin Allergy Intermediate RASH/ITCHING 04/17/19 Yes Vital Signs GENERAL: No apparent distress. Alert and oriented. HEENT: Head normocephalic, atraumatic. NECK: Supple LUNGS: Clear to auscultation. HEART: RRR, S1, S2 present, pulses intact ABDOMEN: Soft, positive bowel sounds. EXTREMITIES: right knee with dressing NEUROLOGIC: Normal speech, normal tone PSYCHIATRIC: Normal affect, normal mood. SKIN: No ulceration. Vital Signs Date Time Temp Pulse Resp B/P (MAP) Pulse Ox O2 Delivery O2 Flow Rate FiO2 05/03/19 07:00 98.3 82 18 114/72 (86) 98 Room Air 98.3 Lab Results Laboratory Tests Test 05/02/19 12:33 White Blood Count 8.7 x10^3/uL (4.0-11.0) Red Blood Count 4.01 x10^6/uL (4.30-5.70) Hemoglobin 12.2 g/dL (13.0-17.5) Hematocrit 36.5 % (39.0-53.0) Mean Corpuscular Volume 91 fL (79-100) Mean Corpuscular Hemoglobin 31 pg (25-35) Mean Corpuscular Hemoglobin Concent 34 g/dL (31-37) Red Cell Distribution Width 13.4 % (11.5-14.5) Platelet Count 460 x10^3/uL (140-400) Neutrophils (%) (Auto) 73 % (31-73) Lymphocytes (%) (Auto) 19 % (24-48) Monocytes (%) (Auto) 7 % (0-9) Eosinophils (%) (Auto) 1 % (0-3) Basophils (%) (Auto) 1 % (0-3) Neutrophils # (Auto) 6.4 x10^3/uL (1.8-7.7) Lymphocytes # (Auto) 1.6 x10^3/uL (1.0-4.8) Monocytes # (Auto) 0.6 x10^3/uL (0.0-1.1) Eosinophils # (Auto) 0.1 x10^3/uL (0.0-0.7) Basophils # (Auto) 0.1 x10^3/uL (0.0-0.2) D-Dimer (Lara) 4.97 ug/mlFEU (0.00-0.50) Sodium Level 141 mmol/L (136-145) Potassium Level 4.2 mmol/L (3.5-5.1) Chloride Level 104 mmol/L (98-107) Carbon Dioxide Level 31 mmol/L (21-32) Anion Gap 6 (6-14) Blood Urea Nitrogen 24 mg/dL (8-26) Creatinine 1.3 mg/dL (0.7-1.3) Estimated GFR (Cockcroft-Gault) 58.2 BUN/Creatinine Ratio 18 (6-20) Glucose Level 100 mg/dL (70-99) Lactic Acid Level 1.3 mmol/L (0.4-2.0) Calcium Level 9.0 mg/dL (8.5-10.1) Magnesium Level 2.1 mg/dL (1.8-2.4) Total Bilirubin 0.5 mg/dL (0.2-1.0) Aspartate Amino Transf (AST/SGOT) 18 U/L (15-37) Alanine Aminotransferase (ALT/SGPT) 32 U/L (16-63) Alkaline Phosphatase 80 U/L (46-116) Creatine Kinase 45 U/L (39-308) Troponin I Quantitative < 0.017 ng/mL (0.000-0.055) Total Protein 7.7 g/dL (6.4-8.2) Albumin 3.0 g/dL (3.4-5.0) Albumin/Globulin Ratio 0.6 (1.0-1.7) Brief Hospital Course Very pleasant 49 year old with no significant PMhx who presents to the hospital after 2 episodes of syncope and collapse this morning while taking a shower for the first time. denies any prodrome of chest pain sob palpitations prior to collapse. no reported focal weakness. hx not consistent with seizure like episode. denies any cardiac hx. oral intake has been good and he ate breakfast this AM prior to collapse. patient recently admitted last week for right knee bursitis s/p I and D. sent home on zyvox. states he has been intermittently nauseous but no vomiting for abx. was sent home on 2 week course of zyvox. unclear of orthostatics checked in ED. all imaging negative in ED including chest xray, CT chest, CT head and CT face. no fractures. EKG NSR. trops negative. ASSESSMENT syncope and collapse elevated d dimer, negative CT chest right knee infected bursitis s/p I and D PLAN admitted to obs tele. no events on tele. orthostatics negative. CTA chest negative. TTE negative. no further syncopal episodes. restarted home meds. suspect vasovagal syncope. also patient on narcotics which should be used with caution as this could play a role in some of his symptoms. he has 1 more week left of oral abx to complete. he was discharged home today in stable condition. Discharge Information Condition at Discharge: Stable Follow Up: Weeks Disposition/Orders: D/C to Home Scheduled Aspirin (Aspirin) 325 Mg Tablet, 325 MG PO DAILYWBKFT for primary prevention, #60 Prescribed by: VERONICA BOO on 04/23/19850 Last Action: Continued on 05/02/191521 by SHORTY KELLER MD Docusate Sodium (Dok) 100 Mg Capsule, 100 MG PO BID for hard stools for 10 Days, #20 Prescribed by: ALEJANDRA NAJERA MD on 04/24/19 1336 Last Action: Continued on 05/02/191521 by SHORTY KELLER MD Lactobacillus Rhamnosus Gg (Culturelle) 1 Each Cap.sprink, 1 CAP PO BID for supplement for 30 Days, #60 Prescribed by: ALEJANDRA NAJERA MD on 04/24/19 1336 Last Action: Continued on 05/02/191521 by SHORTY KELLER MD Linezolid (Zyvox) 600 Mg Tablet, 600 MG PO BID for cellulitis rt knee, #14 Prescribed by: VERONICA BOO on 04/23/19850 Last Action: Continued on 05/02/191521 by SHORTY KELLER MD Multivits,Ca,Minerals/Iron/Fa (Thera-M Tablet) 1 Each Tablet, 1 TAB PO DAILY for mvi, wound healing, #60 Prescribed by: VERONICA BOO on 04/23/19850 Last Action: Continued on 05/02/191521 by SHORTY KELLER MD Scheduled PRN Acetaminophen (Tylenol) 325 Mg Tablet, 650 MG PO PRN Q4HRS PRN for TEMP OVER 100.4F OR MILD PAIN for 10 Days, #30 Prescribed by: ALEJANDRA NAJERA MD on 04/24/19 1336 Last Action: Continued on 05/02/191521 by SHORTY KELLER MD Hydrocodone Bit/Acetaminophen (Hydrocodone-Apap 7.5-325 ) 1 Tab Tablet, 1 TAB PO PRN Q4HRS PRN for MODERATE PAIN, #20 Prescribed by: VERONICA BOO on 04/23/19 0851 Last Action: HELD on 05/02/191521 by MD ARIANNA PARTIDA MANEESH MD May 03, 2019 12:38
--- NOTE | 2019-05-03 13:21 | NUR ---
Discharge Note: MYNOR ZAVALETA [address] [place] [address] Discharge instructions and discharge home medications reviewed with Patient and a copy given. All questions have been answered and understanding verbalized. The following instructions and handouts were given: discharge instructions, syncope info. Discontinued lines and drains: Peripheral IV intact. Patient discharged to Home or Self Care with Spouse via Ambulated at 1321.
== END 2019-05-03 13:30 | disposition home or self-care (01) ==
LOC: ER 12:01 → 2 SOUTH 14:42
PROVIDERS: ADMIT Internal Medicine; ATTEND Internal Medicine
DX: R55 Syncope and collapse (principal); R74.8 Abnormal levels of other serum enzymes; Z90.49 Acquired absence of other specified parts of digestive tract
CPT/HCPCS: 36415; 70450; 70486; 71045; 71275; 80053; 82550; 83605; 83735; 84484; 85025; 85379; 93005; 93306; 96361; 96374; 99284; G0378; J2405; J7030; Q9967; G0379

== ENCOUNTER 2019-10-13 11:39 | Emergency (ER) | payer OTHER ==
[~2019-10-13] VITALS: Ht 167.6 cm; Wt 75.0 kg
[2019-10-13] MEDS ORDERED: IV NORMAL SALINE 1000ML BAG 1,000 ML IV SCH (12:05)
--- NOTE | 2019-10-13 12:11 | PHYS DOC ---
Past Medical History Past Medical History: Other Additional Past Medical Histor: SEPSIS/CELLULITIS Past Surgical History: Tonsillectomy Additional Past Surgical Histo: RIGHT ANKLE SX Smoking Status: Never Smoker Alcohol Use: Occasionally General Adult EDM: Chief Complaint: BLOOD IN URINE HPI: HPI: Patient is a 49 year old male who presents with states he has had 2 days worth of low mid abdominal pressure and burning with urination. He states he also has blood in his urine. He states he went to an urgent care about an hour prior to arrival and they took a urine sample and told him that they were unable to do any blood work and that he needed to come to the emergency room. Patient denies pain, nausea, vomiting, abdominal pain, back pain, diarrhea, shortness of breath, fever, chest pain, dizziness, vision changes, numbness or tingling. He has a history of cellulitis and sepsis. He states when he was here in April he had cellulitis that was also sepsis and they stated to him at that time that it had affected his kidneys but he has had no problems since then. He denies any concerns for sexually transmitted diseases, penile discharge. Review of Systems: Review of Systems: Constitutional: Denies fever or chills. [] Eyes: Denies change in visual acuity. [] HENT: Denies nasal congestion or sore throat. [] Respiratory: Denies cough or shortness of breath. [] Cardiovascular: Denies chest pain or edema. [] GI: Low mid abdominal pressure, denies nausea, vomiting, bloody stools or diarrhea. [] : Hematuria and dysuria. [] Musculoskeletal: Denies back pain or joint pain. [] Integument: Denies rash. [] Neurologic: Denies headache, focal weakness or sensory changes. [] Endocrine: Denies polyuria or polydipsia. [] Lymphatic: Denies swollen glands. [] Psychiatric: Denies depression or anxiety. [] Heart Score: Risk Factors: Risk Factors: DM, Current or recent (<one month) smoker, HTN, HLP, family history of CAD, obesity. Risk Scores: Score 0 - 3: 2.5% MACE over next 6 weeks - Discharge Home Score 4 - 6: 20.3% MACE over next 6 weeks - Admit for Clinical Observation Score 7 - 10: 72.7% MACE over next 6 weeks - Early Invasive Strategies Allergies: Allergies: Allergies Coded Allergies Type Severity Reaction Last Updated Verified vancomycin Allergy Intermediate RASH/ITCHING 04/17/19 Yes Physical Exam: PE: Constitutional: Well developed, well nourished, no acute distress, non-toxic appearance. [] HENT: Normocephalic, atraumatic, bilateral external ears normal, oropharynx moist, no oral exudates, nose normal. [] Eyes: PERRLA, EOMI, conjunctiva normal, no discharge. [] Neck: Normal range of motion, no tenderness, supple, no stridor. [] Cardiovascular:Heart rate regular rhythm, no murmur [] Lungs & Thorax: Bilateral breath sounds clear to auscultation [] Abdomen: Bowel sounds normal, soft, no tenderness, no masses, no pulsatile masses. [] Skin: Warm, dry, no erythema, no rash. [] Back: No tenderness, no CVA tenderness. [] Extremities: No tenderness, no cyanosis, no clubbing, ROM intact, no edema. [] Neurologic: Alert and oriented X 3, normal motor function, normal sensory function, no focal deficits noted. [] Psychologic: Affect normal, judgement normal, mood normal. Normal physical exam [] EKG: EKG: [] Radiology/Procedures: Radiology/Procedures: [] Impression: [facility] [address] [place], [place] [id number] IMAGING REPORT Signed PATIENT: MYNOR ZAVALETA AACCOUNT: [id number] : 1970 LOCATION: ER AGE: 49 SEX: M EXAM STATUS: REG ER ORD. PHYSICIAN: KAYE CASTELLANO APRN REASON: BLOOD IN URINE PROCEDURE: CT ABD PELV W/ IV CONTRST ONLY Examination: CT of the abdomen pelvis with IV contrast HISTORY: History of blood in the uterine COMPARISON: None available Technique: Axial CT images of the abdomen pelvis were performed with IV contrast. Coronal and sagittal reformats are performed Exposure: One or more of the following individualized dose reduction techniques were utilized for this examination: 1. Automated exposure control 2. Adjustment of the mA and/or kV according to patient size 3. Use of iterative reconstruction technique FINDINGS: Minimal bibasilar lung atelectasis. No evidence of free air identified in the abdomen. The liver, spleen, adrenals grossly appears unremarkable. Gallbladder is mildly distended. The stomach is mildly distended. The visualized pancreas grossly appears unremarkable. The small bowel is nondilated. Probable small duodenal diverticulum third part of the duodenum. Feces and gas noted in the colon. The appendix is normal. The bilateral kidneys enhance symmetrically. Minimal fat stranding identified about the bilateral kidneys. Urinary bladder is mildly distended. The caliber of the aorta grossly appears unremarkable. Mild degenerative changes thoracal lumbar spine. Bilateral L5 spondylolysis. IMPRESSION: 1. Mild fat stranding identified about the bilateral kidneys could be urinary tract infection. Correlate with lab values. Electronically signed by: Mingo Larsen MD (10/13/2019 1:40 PM) [id number] DICTATED and SIGNED BY: MINGO LARSEN MD DATE: 10/13/19 1340 Course & Med Decision Making: Course & Med Decision Making Pertinent Labs and Imaging studies reviewed. (See chart for details) Abdomen soft and nontender. Alert and oriented. Speaks in full clear sentences. Ambulatory with steady gait. Skin pink warm and dry. Temperature is 99.1. Patient denies any testicular pain. No CVA tenderness. Patient has pyelonephritis. I will give him Ciprofloxacin in the ED and then start him on Ciprofloxacin PO. Hemodynamically stable. Afebrile. Patient has no other symptoms. [] Juani Disclaimer: Dragon Disclaimer: This electronic medical record was generated, in whole or in part, using a voice recognition dictation system. Departure Departure Impression: Primary Impression: Pyelonephritis Disposition: 01 HOME, SELF-CARE Condition: STABLE Referrals: NO PCP (PCP) Patient Instructions: Pyelonephritis, Adult Additional Instructions: Follow up with primary care provider. Take medications as prescribed and with food. Drink plenty of water. Scripts Ciprofloxacin Hcl (CIPROFLOXACIN HCL) 500 Mg Tablet 1 TAB PO BID, #20 TAB Prov: KAYE CASTELLANO APRN 10/13/19 Justicifation of Admission Dx: Justifications for Admission: Justification of Admission Dx: N/A KAYE CASTELLANO APRN Oct 13, 2019 12:11
[2019-10-13 12:21] LABS: BILIRUBIN,URINE NEGATIVE (NEG); CLARITY,URINE CLEAR; COLOR,URINE AMBER; NITRITE,URINE NEGATIVE (NEG); PROTEIN,URINE 100 mg/dL (NEG-TRACE); UROBILINOGEN,URINE 0.2 mg/dL (0.2 mg/dL)
[2019-10-13 12:28] LABS: BACTERIA,URINE FEW /HPF (0-FEW)
[2019-10-13 12:40] LABS: BASO % 0 % (0-3); EOS % 0 % (0-3); HEMATOCRIT 41.7 % (39.0-53.0); HEMOGLOBIN 14.5 g/dL (13.0-17.5); LYMPH % 8 % (24-48); MEAN CORPUSCULAR HEMOGLOBIN 31 pg (25-35); MEAN CORPUSCULAR HGB CONC 35 g/dL (31-37); MEAN CORPUSCULAR VOLUME 88 fL (79-100); MONO % 8 % (0-9); NEUT # 10.7 x10^3/uL (1.8-7.7); NEUT % 84 % (31-73); PLATELET COUNT 159 x10^3/uL (140-400); RED BLOOD COUNT 4.73 x10^6/uL (4.30-5.70); RED CELL DISTRIBUTION WIDTH 13.2 % (11.5-14.5); WHITE BLOOD COUNT 12.8 x10^3/uL (4.0-11.0)
[2019-10-13 12:57] LABS: CALCIUM 8.7 mg/dL (8.5-10.1); CREATININE 1.4 mg/dL (0.7-1.3); GFR 53.4; POTASSIUM 4.1 mmol/L (3.5-5.1)
[2019-10-13 13:03] LABS: ALBUMIN 3.8 g/dL (3.4-5.0); ALBUMIN/GLOBULIN RATIO 0.9 (1.0-1.7); TOTAL BILIRUBIN 1.3 mg/dL (0.2-1.0)
[2019-10-13] MEDS ORDERED: CONTRAST GIVEN. MC PRN (13:15)
[2019-10-13] MEDS ORDERED: IOHEXOL 300 MG/ML 100ML VIAL. IV ONE (13:15)
--- NOTE | 2019-10-13 13:42 | RAD ---
Examination: CT of the abdomen pelvis with IV contrast HISTORY: History of blood in the uterine COMPARISON: None available Technique: Axial CT images of the abdomen pelvis were performed with IV contrast. Coronal and sagittal reformats are performed Exposure: One or more of the following individualized dose reduction techniques were utilized for this examination: 1. Automated exposure control 2. Adjustment of the mA and/or kV according to patient size 3. Use of iterative reconstruction technique FINDINGS: Minimal bibasilar lung atelectasis. No evidence of free air identified in the abdomen. The liver, spleen, adrenals grossly appears unremarkable. Gallbladder is mildly distended. The stomach is mildly distended. The visualized pancreas grossly appears unremarkable. The small bowel is nondilated. Probable small duodenal diverticulum third part of the duodenum. Feces and gas noted in the colon. The appendix is normal. The bilateral kidneys enhance symmetrically. Minimal fat stranding identified about the bilateral kidneys. Urinary bladder is mildly distended. The caliber of the aorta grossly appears unremarkable. Mild degenerative changes thoracal lumbar spine. Bilateral L5 spondylolysis. IMPRESSION: 1. Mild fat stranding identified about the bilateral kidneys could be urinary tract infection. Correlate with lab values. Electronically signed by: Mingo Larsen MD (10/13/2019 1:40 PM) [id number]
[2019-10-13] MEDS ORDERED: CIPROFLOXACIN 400MG PREMIX 200 ML IV ONE (14:00)
[2019-10-13] MEDS ORDERED: CIPR500T PO (14:02)
[2019-10-13 14:56] VITALS: BP 116/68
== END 2019-10-13 15:20 | disposition home or self-care (01) ==
LOC: ER 11:39
DX: N12 Tubulo-interstitial nephritis, not specified as acute or chronic (principal); Z88.1 Allergy status to other antibiotic agents
CPT/HCPCS: 36415; 74177; 80053; 81001; 83690; 85025; 87086; 96365; 99285; J0744; J7030; Q9967

== ENCOUNTER 2019-10-15 10:17 | Inpatient (IN) | payer OTHER ==
[~2019-10-15] VITALS: Ht 167.6 cm; Wt 70.4 kg
[~2019-10-15 10:17] MED LIST changes: +CIPR500T PO
[2019-10-15] MEDS ORDERED: IV NORMAL SALINE 1000ML BAG 1,000 ML IV ONE (11:15)
[2019-10-15] MEDS ORDERED: cefTRIAXone IV Push 1 GM VIAL. IVP ONE ×2 (11:15→21:00)
[2019-10-15 11:19] LABS: BILIRUBIN,URINE SMALL (NEG); CLARITY,URINE CLEAR; COLOR,URINE AMBER; NITRITE,URINE NEGATIVE (NEG); PH,URINE 5.5 (<5.0-8.0); PROTEIN,URINE 100 mg/dL (NEG-TRACE); UROBILINOGEN,URINE 0.2 mg/dL (0.2 mg/dL)
[2019-10-15 11:28] LABS: SQUAMOUS EPITHELIAL CELL,UR FEW /LPF
[2019-10-15 11:29] LABS: BACTERIA,URINE FEW /HPF (0-FEW)
[2019-10-15 11:33] LABS: BASO % 0 % (0-3); EOS % 0 % (0-3); HEMATOCRIT 40.5 % (39.0-53.0); HEMOGLOBIN 13.9 g/dL (13.0-17.5); LYMPH # 0.5 x10^3/uL (1.0-4.8); LYMPH % 4 % (24-48); MEAN CORPUSCULAR HEMOGLOBIN 30 pg (25-35); MEAN CORPUSCULAR HGB CONC 34 g/dL (31-37); MEAN CORPUSCULAR VOLUME 89 fL (79-100); MONO % 7 % (0-9); NEUT # 12.8 x10^3/uL (1.8-7.7); NEUT % 89 % (31-73); PLATELET COUNT 160 x10^3/uL (140-400); RED BLOOD COUNT 4.58 x10^6/uL (4.30-5.70); RED CELL DISTRIBUTION WIDTH 13.3 % (11.5-14.5); WHITE BLOOD COUNT 14.4 x10^3/uL (4.0-11.0)
[2019-10-15 11:56] LABS: ALBUMIN/GLOBULIN RATIO 0.7 (1.0-1.7); CALCIUM 8.6 mg/dL (8.5-10.1); CREATININE 1.3 mg/dL (0.7-1.3); GFR 58.2; POTASSIUM 3.9 mmol/L (3.5-5.1); TOTAL BILIRUBIN 0.8 mg/dL (0.2-1.0); TOTAL PROTEIN 7.4 g/dL (6.4-8.2)
[2019-10-15] MEDS ORDERED: IV NORMAL SALINE 1000ML BAG 1,000 ML IV SCH (12:19)
[2019-10-15] MEDS ORDERED: PHENAZOPYRIDINE 200 MG TABLET. PO ONE (12:30)
[2019-10-15] MEDS ORDERED: ONDANSETRON PF 4 MG/2 ML VIAL. IV PRN (12:30)
[2019-10-15] MEDS ORDERED: KETOROLAC 30 MG/ML VIAL. IVP ONE (12:30)
[2019-10-15 12:54] LABS: % LYMPHS 8 % (24-48); % MONOS 7 % (0-10); % SEGS 85 % (35-66); PLT ESTIMATE ADEQUATE (ADEQUATE)
--- NOTE | 2019-10-15 13:25 | PDOC1 ---
History and Physical Date of Admission: Date of Admission DATE: 10/15/19 TIME: 13:23 Chief Complaint: Problems: (1) Cellulitis (2) Cellulitis of right knee (3) Pyelonephritis Chief Complain: Dysuria History of Present Illness: HPI: This is a middle-aged white male who was recently treated for pyelonephritis on last Monday He was sent home with prescription for ciprofloxacin he also has p.o. Zyvox His symptoms just really have not ever gotten much better He has been drinking lots of fluids He tried increasing some of his home meds but that did not seem to help States his symptoms are worse when he is urinating Describes his symptoms as very anxiety producing I discussed the case with ER physician working him with patient and consult infectious disease and getting some more IV fluids IV antibiotics Past Medical/Surgical History: PMH/PSH: Previous UTI Allergies: Allergies: Coded Allergies: vancomycin (Verified Allergy, Intermediate, RASH/ITCHING, 04/17/19) Family History: Family History: Hypertension Social History: Social History: He does not drink smoke or take drugs he is Current Medications: Current Medications Current Medications Sodium Chloride 1,000 ml @ 1,000 mls/hr 1X ONCE IV Last administered on 10/15/19at 11:30; Start 10/15/19 at 11:15; Stop 10/15/19 at 12:14; Status DC Ceftriaxone Sodium (Rocephin) 1 gm 1X ONCE IVP Last administered on 10/15/19at 11:29; Start 10/15/19 at 11:15; Stop 10/15/19 at 11:16; Status DC Ondansetron HCl (Zofran) 4 mg PRN Q8HRS PRN IV NAUSEA/VOMITING; Start 10/15/19 at 12:30; Stop 10/16/19 at 12:29 Sodium Chloride 1,000 ml @ 75 mls/hr [id number] IV Last administered on 10/15/19at 12:45; Start 10/15/19 at 12:19; Stop 10/16/19 at 12:18 Ketorolac Tromethamine (Toradol 30mg Vial) 30 mg 1X ONCE IVP Last administered on 10/15/19at 12:45; Start 10/15/19 at 12:30; Stop 10/15/19 at 12:31; Status DC Phenazopyridine HCl (Pyridium) 200 mg 1X ONCE PO Last administered on 10/15/19at 12:45; Start 10/15/19 at 12:30; Stop 10/15/19 at 12:31; Status DC Active Scripts Active Ciprofloxacin Hcl 500 Mg Tablet 1 Tab PO BID Culturelle (Lactobacillus Rhamnosus Gg) 1 Each Cap.sprink 1 Cap PO BID 30 Days Dok (Docusate Sodium) 100 Mg Capsule 100 Mg PO BID 10 Days Tylenol (Acetaminophen) 325 Mg Tablet 650 Mg PO PRN Q4HRS PRN 10 Days Thera-M Tablet (Multivits,Ca,Minerals/Iron/Fa) 1 Each Tablet 1 Tab PO DAILY Hydrocodone-Apap 7.5-325 (Hydrocodone Bit/Acetaminophen) 1 Tab Tablet 1 Tab PO PRN Q4HRS PRN Aspirin 325 Mg Tablet 325 Mg PO [id number] Zyvox (Linezolid) 600 Mg Tablet 600 Mg PO BID ROS: Review of Systems Review of System REVIEW OF SYSTEMS: GENERAL: Denies weakness SKIN: No bruising, hair changes or rashes. EYES: No blurred, double or loss of vision. NOSE AND THROAT: No history of nosebleeds, hoarseness or sore throat. HEART: No history of palpitations, chest pain or shortness of breath on exertion. LUNGS: Denies cough, hemoptysis, wheezing or shortness of breath. GASTROINTESTINAL: Denies changes in appetite, nausea, vomiting, diarrhea or constipation. GENITOURINARY: Complains of dysuria NEUROLOGIC: Denies history of numbness, tingling, or tremor. PSYCHIATRIC: No history of panic, anxiety or depression. ENDOCRINE: No history of heat or cold intolerance, polyuria or polydipsia. EXTREMITIES: Denies joint pain, pain on walking or stiffness. Physical Exam: Vital Signs: Vital Signs Date Time Temp Pulse Resp B/P (MAP) Pulse Ox O2 Delivery O2 Flow Rate FiO2 10/15/19 12:29 102 98 10/15/19 11:06 100.2 20 125/79 (94) Room Air 100.2 Physcial Exam: GEN: No apparent distress. Alert and oriented HEENT: Normal cephalic, atraumatic, external auditory canals are patent EYES: Extraocular muscles are intact, pupil are equally round and reactive to light and accommodation MUSCULOSKELETAL: Well developed , well nourished, good range of motion ENDOCRINE: No thyromegaly was palpated LYMPHATICS: No cervical chain or axillary nodes were noted HEMATOPOIETIC: No bruising NECK: Supple, no JVD, no thyromegaly was noted LUNGS: Clear to auscultation in all lung flowers without rhonchi or wheezing HEART: RRR, S!, S2 present. Peripheral pulses intact, no obvious murmurs noted ABDOMEN: Soft, nontender. Positive bowel sounds, no organomegaly, normal bowel sounds EXTREMITIES: Without clubbing, cyanosis, or edema. Pedal pulses intact. Negative Homans sign NEUROLOGIC: Normal speech and tone. A&O x 3, moves all extremities, no obvious focal deficits PSYCHIATRIC: Normal affect, normal mood. Stable SKIN: No ulcerations or rashes, good skin turgor, no jaundice VASCULAR: Good capillary refill, neurovascular bundle appears to be intact Labs: Labs: Laboratory Tests Test 10/15/19 10:50 10/15/19 11:20 Urine Collection Type Unknown Urine Color Yany Urine Clarity Clear Urine pH 5.5 (<5.0-8.0) Urine Specific [place] >=1.030 (1.000-1.030) Urine Protein 100 mg/dL (NEG-TRACE) Urine Glucose (UA) Negative mg/dL (NEG) Urine Ketones (Stick) >=80 mg/dL (NEG) Urine Blood Small (NEG) Urine Nitrite Negative (NEG) Urine Bilirubin Small (NEG) Urine Urobilinogen Dipstick 0.2 mg/dL (0.2 mg/dL) Urine Leukocyte Esterase Trace (NEG) Urine RBC 1-2 /HPF (0-2) Urine WBC 11-20 /HPF (0-4) Urine Squamous Epithelial Cells Few /LPF Urine Bacteria Few /HPF (0-FEW) Urine Mucus Mod /LPF White Blood Count 14.4 x10^3/uL (4.0-11.0) Red Blood Count 4.58 x10^6/uL (4.30-5.70) Hemoglobin 13.9 g/dL (13.0-17.5) Hematocrit 40.5 % (39.0-53.0) Mean Corpuscular Volume 89 fL (79-100) Mean Corpuscular Hemoglobin 30 pg (25-35) Mean Corpuscular Hemoglobin Concent 34 g/dL (31-37) Red Cell Distribution Width 13.3 % (11.5-14.5) Platelet Count 160 x10^3/uL (140-400) Neutrophils (%) (Auto) 89 % (31-73) Lymphocytes (%) (Auto) 4 % (24-48) Monocytes (%) (Auto) 7 % (0-9) Eosinophils (%) (Auto) 0 % (0-3) Basophils (%) (Auto) 0 % (0-3) Neutrophils # (Auto) 12.8 x10^3/uL (1.8-7.7) Lymphocytes # (Auto) 0.5 x10^3/uL (1.0-4.8) Monocytes # (Auto) 1.0 x10^3/uL (0.0-1.1) Eosinophils # (Auto) 0.0 x10^3/uL (0.0-0.7) Basophils # (Auto) 0.0 x10^3/uL (0.0-0.2) Segmented Neutrophils % 85 % (35-66) Lymphocytes % 8 % (24-48) Monocytes % 7 % (0-10) Dohle Bodies Few Platelet Estimate Adequate (ADEQUATE) Large Platelets Few Sodium Level 138 mmol/L (136-145) Potassium Level 3.9 mmol/L (3.5-5.1) Chloride Level 102 mmol/L (98-107) Carbon Dioxide Level 27 mmol/L (21-32) Anion Gap 9 (6-14) Blood Urea Nitrogen 19 mg/dL (8-26) Creatinine 1.3 mg/dL (0.7-1.3) Estimated GFR (Cockcroft-Gault) 58.2 BUN/Creatinine Ratio 15 (6-20) Glucose Level 119 mg/dL (70-99) Calcium Level 8.6 mg/dL (8.5-10.1) Total Bilirubin 0.8 mg/dL (0.2-1.0) Aspartate Amino Transf (AST/SGOT) 39 U/L (15-37) Alanine Aminotransferase (ALT/SGPT) 54 U/L (16-63) Alkaline Phosphatase 78 U/L (46-116) Total Protein 7.4 g/dL (6.4-8.2) Albumin 3.0 g/dL (3.4-5.0) Albumin/Globulin Ratio 0.7 (1.0-1.7) Laboratory Tests Test 10/15/19 10:50 10/15/19 11:20 Urine Collection Type Unknown Urine Color Yany Urine Clarity Clear Urine pH 5.5 (<5.0-8.0) Urine Specific [place] >=1.030 (1.000-1.030) Urine Protein 100 mg/dL (NEG-TRACE) Urine Glucose (UA) Negative mg/dL (NEG) Urine Ketones (Stick) >=80 mg/dL (NEG) Urine Blood Small (NEG) Urine Nitrite Negative (NEG) Urine Bilirubin Small (NEG) Urine Urobilinogen Dipstick 0.2 mg/dL (0.2 mg/dL) Urine Leukocyte Esterase Trace (NEG) Urine RBC 1-2 /HPF (0-2) Urine WBC 11-20 /HPF (0-4) Urine Squamous Epithelial Cells Few /LPF Urine Bacteria Few /HPF (0-FEW) Urine Mucus Mod /LPF White Blood Count 14.4 x10^3/uL (4.0-11.0) Red Blood Count 4.58 x10^6/uL (4.30-5.70) Hemoglobin 13.9 g/dL (13.0-17.5) Hematocrit 40.5 % (39.0-53.0) Mean Corpuscular Volume 89 fL (79-100) Mean Corpuscular Hemoglobin 30 pg (25-35) Mean Corpuscular Hemoglobin Concent 34 g/dL (31-37) Red Cell Distribution Width 13.3 % (11.5-14.5) Platelet Count 160 x10^3/uL (140-400) Neutrophils (%) (Auto) 89 % (31-73) Lymphocytes (%) (Auto) 4 % (24-48) Monocytes (%) (Auto) 7 % (0-9) Eosinophils (%) (Auto) 0 % (0-3) Basophils (%) (Auto) 0 % (0-3) Neutrophils # (Auto) 12.8 x10^3/uL (1.8-7.7) Lymphocytes # (Auto) 0.5 x10^3/uL (1.0-4.8) Monocytes # (Auto) 1.0 x10^3/uL (0.0-1.1) Eosinophils # (Auto) 0.0 x10^3/uL (0.0-0.7) Basophils # (Auto) 0.0 x10^3/uL (0.0-0.2) Segmented Neutrophils % 85 % (35-66) Lymphocytes % 8 % (24-48) Monocytes % 7 % (0-10) Dohle Bodies Few Platelet Estimate Adequate (ADEQUATE) Large Platelets Few Sodium Level 138 mmol/L (136-145) Potassium Level 3.9 mmol/L (3.5-5.1) Chloride Level 102 mmol/L (98-107) Carbon Dioxide Level 27 mmol/L (21-32) Anion Gap 9 (6-14) Blood Urea Nitrogen 19 mg/dL (8-26) Creatinine 1.3 mg/dL (0.7-1.3) Estimated GFR (Cockcroft-Gault) 58.2 BUN/Creatinine Ratio 15 (6-20) Glucose Level 119 mg/dL (70-99) Calcium Level 8.6 mg/dL (8.5-10.1) Total Bilirubin 0.8 mg/dL (0.2-1.0) Aspartate Amino Transf (AST/SGOT) 39 U/L (15-37) Alanine Aminotransferase (ALT/SGPT) 54 U/L (16-63) Alkaline Phosphatase 78 U/L (46-116) Total Protein 7.4 g/dL (6.4-8.2) Albumin 3.0 g/dL (3.4-5.0) Albumin/Globulin Ratio 0.7 (1.0-1.7) Assessment/Plan Assessment/Plan Recurrent UTI and pyelonephritis Plan We will start IV antibiotics IV fluids Consult infectious disease for second opinion Home meds DVT prophylaxis Full code Trend labs Justicifation of Admission Dx: Justifications for Admission: Justification of Admission Dx: N/A DESTINY PETERSEN III DO Oct 15, 2019 13:25
[2019-10-15 15:00] VITALS: BP 113/70
--- NOTE | 2019-10-15 16:05 | PHYS DOC ---
Past Medical History Past Medical History: UTI, Other Additional Past Medical Histor: SEPSIS/CELLULITIS Past Surgical History: Tonsillectomy Additional Past Surgical Histo: RIGHT ANKLE SX, I&D RIGHT KNEE Smoking Status: Never Smoker Alcohol Use: Occasionally General Adult EDM: Chief Complaint: URINARY RETENTION HPI: HPI: Patient is a 49 year old male who presented to ER today for evaluation of frequent urination with burning sensation. He has had this symptom for about 5 days. Patient was seen here 2 days ago for the same symptom, diagnosed with pyelonephritis, patient was given IV Rocephin in the ER, was discharged home with Cipro 500 mg twice a day. Patient has taken the medication but he continued to feel sick so he came back here for evaluation. Patient denies any chest pain or any trouble breathing, no cough. Review of Systems: Review of Systems: Constitutional: Positive for fever or chills. [] Eyes: Denies change in visual acuity. [] HENT: Denies nasal congestion or sore throat. [] Respiratory: Denies cough or shortness of breath. [] Cardiovascular: Denies chest pain or edema. [] GI: Denies abdominal pain, nausea, vomiting, bloody stools or diarrhea. [] : Positive for dysuria, urinary frequency. Musculoskeletal: Denies back pain or joint pain. [] Integument: Denies rash. [] Neurologic: Denies headache, focal weakness or sensory changes. [] Endocrine: Denies polyuria or polydipsia. [] Lymphatic: Denies swollen glands. [] Psychiatric: Denies depression or anxiety. [] Heart Score: Risk Factors: Risk Factors: DM, Current or recent (<one month) smoker, HTN, HLP, family history of CAD, obesity. Risk Scores: Score 0 - 3: 2.5% MACE over next 6 weeks - Discharge Home Score 4 - 6: 20.3% MACE over next 6 weeks - Admit for Clinical Observation Score 7 - 10: 72.7% MACE over next 6 weeks - Early Invasive Strategies Current Medications: Current Medications Medications (Trade) Dose Ordered Sig/Sindhu Start Time Stop Time Status Last Admin Dose Admin Ceftriaxone Sodium (Rocephin) 1 gm 1X ONCE 10/15/19 11:15 10/15/19 11:16 DC 10/15/19 11:29 1 GM Sodium Chloride 1,000 ml @ 1,000 mls/hr 1X ONCE 10/15/19 11:15 10/15/19 12:14 DC 10/15/19 11:30 1,000 MLS/HR Allergies: Allergies: Allergies Coded Allergies Type Severity Reaction Last Updated Verified vancomycin Allergy Intermediate RASH/ITCHING 04/17/19 Yes Physical Exam: PE: Constitutional: Well developed, well nourished, no acute distress, non-toxic appearance. [] HENT: Normocephalic, atraumatic, bilateral external ears normal, oropharynx moist, no oral exudates, nose normal. [] Eyes: PERRLA, EOMI, conjunctiva normal, no discharge. [] Neck: Normal range of motion, no tenderness, supple, no stridor. [] Cardiovascular:Heart rate regular rhythm, no murmur [] Lungs & Thorax: Bilateral breath sounds clear to auscultation [] Abdomen: Bowel sounds normal, soft, no tenderness, no masses, no pulsatile masses. [] Skin: Warm, dry, no erythema, no rash. [] Back: No tenderness, no CVA tenderness. [] Extremities: No tenderness, no cyanosis, no clubbing, ROM intact, no edema. [] Neurologic: Alert and oriented X 3, normal motor function, normal sensory function, no focal deficits noted. [] Psychologic: Affect normal, judgement normal, mood normal. [] Current Patient Data: Labs: Laboratory Tests Test 10/15/19 10:50 10/15/19 11:20 Urine Collection Type Unknown Urine Color Yany Urine Clarity Clear Urine pH 5.5 (<5.0-8.0) Urine Specific [place] >=1.030 (1.000-1.030) Urine Protein 100 mg/dL (NEG-TRACE) Urine Glucose (UA) Negative mg/dL (NEG) Urine Ketones (Stick) >=80 mg/dL (NEG) Urine Blood Small (NEG) Urine Nitrite Negative (NEG) Urine Bilirubin Small (NEG) Urine Urobilinogen Dipstick 0.2 mg/dL (0.2 mg/dL) Urine Leukocyte Esterase Trace (NEG) Urine RBC 1-2 /HPF (0-2) Urine WBC 11-20 /HPF (0-4) Urine Squamous Epithelial Cells Few /LPF Urine Bacteria Few /HPF (0-FEW) Urine Mucus Mod /LPF White Blood Count 14.4 x10^3/uL (4.0-11.0) H Red Blood Count 4.58 x10^6/uL (4.30-5.70) Hemoglobin 13.9 g/dL (13.0-17.5) Hematocrit 40.5 % (39.0-53.0) Mean Corpuscular Volume 89 fL (79-100) Mean Corpuscular Hemoglobin 30 pg (25-35) Mean Corpuscular Hemoglobin Concent 34 g/dL (31-37) Red Cell Distribution Width 13.3 % (11.5-14.5) Platelet Count 160 x10^3/uL (140-400) Neutrophils (%) (Auto) 89 % (31-73) H Lymphocytes (%) (Auto) 4 % (24-48) L Monocytes (%) (Auto) 7 % (0-9) Eosinophils (%) (Auto) 0 % (0-3) Basophils (%) (Auto) 0 % (0-3) Neutrophils # (Auto) 12.8 x10^3/uL (1.8-7.7) H Lymphocytes # (Auto) 0.5 x10^3/uL (1.0-4.8) L Monocytes # (Auto) 1.0 x10^3/uL (0.0-1.1) Eosinophils # (Auto) 0.0 x10^3/uL (0.0-0.7) Basophils # (Auto) 0.0 x10^3/uL (0.0-0.2) Segmented Neutrophils % 85 % (35-66) H Lymphocytes % 8 % (24-48) L Monocytes % 7 % (0-10) Dohle Bodies Few Platelet Estimate Adequate (ADEQUATE) Large Platelets Few Sodium Level 138 mmol/L (136-145) Potassium Level 3.9 mmol/L (3.5-5.1) Chloride Level 102 mmol/L (98-107) Carbon Dioxide Level 27 mmol/L (21-32) Anion Gap 9 (6-14) Blood Urea Nitrogen 19 mg/dL (8-26) Creatinine 1.3 mg/dL (0.7-1.3) Estimated GFR (Cockcroft-Gault) 58.2 BUN/Creatinine Ratio 15 (6-20) Glucose Level 119 mg/dL (70-99) H Calcium Level 8.6 mg/dL (8.5-10.1) Total Bilirubin 0.8 mg/dL (0.2-1.0) Aspartate Amino Transferase (AST) 39 U/L (15-37) H Alanine Aminotransferase (ALT) 54 U/L (16-63) Alkaline Phosphatase 78 U/L (46-116) Total Protein 7.4 g/dL (6.4-8.2) Albumin 3.0 g/dL (3.4-5.0) L Albumin/Globulin Ratio 0.7 (1.0-1.7) L Laboratory Tests 10/15/19 11:20 Laboratory Tests 10/15/19 11:20 Vital Signs: Vital Signs Date Time Temp Pulse Resp B/P (MAP) Pulse Ox O2 Delivery O2 Flow Rate FiO2 10/15/19 15:00 98.8 98 18 113/70 (84) 96 Room Air 98.8 EKG: EKG: [] Radiology/Procedures: Radiology/Procedures: [] Course & Med Decision Making: Course & Med Decision Making Pertinent Labs and Imaging studies reviewed. (See chart for details) Patient is a 49-year-old male who was diagnosed with acute pyelonephritis, was seen in the ER here 2 days ago, failed outpatient therapy, he needS to be admitted for IV antibiotic. Dragon Disclaimer: Dragon Disclaimer: This electronic medical record was generated, in whole or in part, using a voice recognition dictation system. Departure Departure Impression: Primary Impression: Pyelonephritis Disposition: ADMITTED INPATIENT Admitting Physician: JAJA (Dr. Tate) Condition: STABLE Referrals: JULIAN TERRAZAS MD (PCP) Justicifation of Admission Dx: Justifications for Admission: Justification of Admission Dx: N/A BILL HILL DO Oct 15, 2019 16:05
[2019-10-15 19:00] VITALS: BP 122/80
[2019-10-15] MEDS: HYDROmorphone 2 MG/ML VIAL IVP PRN (20:23)
[2019-10-15] MEDS: ACETAMINOPHEN 325 MG TABLET. PO PRN (20:24)
[2019-10-15] MEDS: IV NORMAL SALINE 1000ML BAG 1,000 ML IV PRN (20:29)
[2019-10-15 23:00] VITALS: BP 97/64
[2019-10-16] VITALS (7 sets, daily range): BP systolic 111–155; BP diastolic 66–84
[2019-10-16] MEDS: IV NORMAL SALINE 1000ML BAG 1,000 ML IV PRN ×3 (00:54→22:49)
[2019-10-16] MEDS: HYDROmorphone 2 MG/ML VIAL IVP PRN ×2 (01:10→17:38)
--- NOTE | 2019-10-16 08:08 | PDOC ---
PROGRESS NOTES Chief Complaint Chief Complaint Recurrent UTI and pyelonephritis - likely from prostatitis Prostatitis, added flomax. Cipro is appropriate given prostate penetration with quinolones Sepsis - febrile to 103. History of Present Illness History of Present Illness Mr Langley is a 49yo M with no PMHx recently treated for pyelonephritis on last Monday. He was sent home with prescription for ciprofloxacin he also has p.o. Zyvox His symptoms just really have not ever gotten much better He has been drinking lots of fluids He tried increasing some of his home meds but that did not seem to help States his symptoms are worse when he is urinating. Pain is in his perineal area. No flank pain Fever 103 Fahrenheit overnight. He still has pain in his perineal area today, but it is improved. He and his are asking if he can go home soon. Vitals Vitals Vital Signs Date Time Temp Pulse Resp B/P (MAP) Pulse Ox O2 Delivery O2 Flow Rate FiO2 10/16/19 03:00 98.2 91 18 125/84 (98) 92 Room Air 98.2 10/15/19 20:00 95.0 Physical Exam General: Alert, Oriented X3, Cooperative Heart: Regular rate, Normal S1, Normal S2 Lungs: Clear Abdomen: Normal bowel sounds, Soft Extremities: No clubbing, No cyanosis Skin: No rashes, No breakdown Labs LABS Laboratory Tests Test 10/15/19 10:50 10/15/19 11:20 10/15/19 20:40 10/16/19 00:00 Urine Collection Type Unknown Urine Color Yany Urine Clarity Clear Urine pH 5.5 (<5.0-8.0) Urine Specific [place] >=1.030 (1.000-1.030) Urine Protein 100 mg/dL (NEG-TRACE) Urine Glucose (UA) Negative mg/dL (NEG) Urine Ketones (Stick) >=80 mg/dL (NEG) Urine Blood Small (NEG) Urine Nitrite Negative (NEG) Urine Bilirubin Small (NEG) Urine Urobilinogen Dipstick 0.2 mg/dL (0.2 mg/dL) Urine Leukocyte Esterase Trace (NEG) Urine RBC 1-2 /HPF (0-2) Urine WBC 11-20 /HPF (0-4) Urine Squamous Epithelial Cells Few /LPF Urine Bacteria Few /HPF (0-FEW) Urine Mucus Mod /LPF White Blood Count 14.4 x10^3/uL (4.0-11.0) Red Blood Count 4.58 x10^6/uL (4.30-5.70) Hemoglobin 13.9 g/dL (13.0-17.5) Hematocrit 40.5 % (39.0-53.0) Mean Corpuscular Volume 89 fL (79-100) Mean Corpuscular Hemoglobin 30 pg (25-35) Mean Corpuscular Hemoglobin Concent 34 g/dL (31-37) Red Cell Distribution Width 13.3 % (11.5-14.5) Platelet Count 160 x10^3/uL (140-400) Neutrophils (%) (Auto) 89 % (31-73) Lymphocytes (%) (Auto) 4 % (24-48) Monocytes (%) (Auto) 7 % (0-9) Eosinophils (%) (Auto) 0 % (0-3) Basophils (%) (Auto) 0 % (0-3) Neutrophils # (Auto) 12.8 x10^3/uL (1.8-7.7) Lymphocytes # (Auto) 0.5 x10^3/uL (1.0-4.8) Monocytes # (Auto) 1.0 x10^3/uL (0.0-1.1) Eosinophils # (Auto) 0.0 x10^3/uL (0.0-0.7) Basophils # (Auto) 0.0 x10^3/uL (0.0-0.2) Segmented Neutrophils % 85 % (35-66) Lymphocytes % 8 % (24-48) Monocytes % 7 % (0-10) Dohle Bodies Few Platelet Estimate Adequate (ADEQUATE) Large Platelets Few Sodium Level 138 mmol/L (136-145) Potassium Level 3.9 mmol/L (3.5-5.1) Chloride Level 102 mmol/L (98-107) Carbon Dioxide Level 27 mmol/L (21-32) Anion Gap 9 (6-14) Blood Urea Nitrogen 19 mg/dL (8-26) Creatinine 1.3 mg/dL (0.7-1.3) Estimated GFR (Cockcroft-Gault) 58.2 BUN/Creatinine Ratio 15 (6-20) Glucose Level 119 mg/dL (70-99) Calcium Level 8.6 mg/dL (8.5-10.1) Total Bilirubin 0.8 mg/dL (0.2-1.0) Aspartate Amino Transf (AST/SGOT) 39 U/L (15-37) Alanine Aminotransferase (ALT/SGPT) 54 U/L (16-63) Alkaline Phosphatase 78 U/L (46-116) Total Protein 7.4 g/dL (6.4-8.2) Albumin 3.0 g/dL (3.4-5.0) Albumin/Globulin Ratio 0.7 (1.0-1.7) Lactic Acid Level 2.2 mmol/L (0.4-2.0) 0.7 mmol/L (0.4-2.0) Assessment and Plan Assessmemt and Plan Problems Medical Problems: (1) Pyelonephritis Status: Acute Comment Review of Relevant I have reviewed the following items matilde (where applicable) has been applied. Labs Laboratory Tests Test 10/15/19 10:50 10/15/19 11:20 10/15/19 20:40 10/16/19 00:00 Urine Collection Type Unknown Urine Color Yany Urine Clarity Clear Urine pH 5.5 (<5.0-8.0) Urine Specific [place] >=1.030 (1.000-1.030) Urine Protein 100 mg/dL (NEG-TRACE) Urine Glucose (UA) Negative mg/dL (NEG) Urine Ketones (Stick) >=80 mg/dL (NEG) Urine Blood Small (NEG) Urine Nitrite Negative (NEG) Urine Bilirubin Small (NEG) Urine Urobilinogen Dipstick 0.2 mg/dL (0.2 mg/dL) Urine Leukocyte Esterase Trace (NEG) Urine RBC 1-2 /HPF (0-2) Urine WBC 11-20 /HPF (0-4) Urine Squamous Epithelial Cells Few /LPF Urine Bacteria Few /HPF (0-FEW) Urine Mucus Mod /LPF White Blood Count 14.4 x10^3/uL (4.0-11.0) Red Blood Count 4.58 x10^6/uL (4.30-5.70) Hemoglobin 13.9 g/dL (13.0-17.5) Hematocrit 40.5 % (39.0-53.0) Mean Corpuscular Volume 89 fL (79-100) Mean Corpuscular Hemoglobin 30 pg (25-35) Mean Corpuscular Hemoglobin Concent 34 g/dL (31-37) Red Cell Distribution Width 13.3 % (11.5-14.5) Platelet Count 160 x10^3/uL (140-400) Neutrophils (%) (Auto) 89 % (31-73) Lymphocytes (%) (Auto) 4 % (24-48) Monocytes (%) (Auto) 7 % (0-9) Eosinophils (%) (Auto) 0 % (0-3) Basophils (%) (Auto) 0 % (0-3) Neutrophils # (Auto) 12.8 x10^3/uL (1.8-7.7) Lymphocytes # (Auto) 0.5 x10^3/uL (1.0-4.8) Monocytes # (Auto) 1.0 x10^3/uL (0.0-1.1) Eosinophils # (Auto) 0.0 x10^3/uL (0.0-0.7) Basophils # (Auto) 0.0 x10^3/uL (0.0-0.2) Segmented Neutrophils % 85 % (35-66) Lymphocytes % 8 % (24-48) Monocytes % 7 % (0-10) Dohle Bodies Few Platelet Estimate Adequate (ADEQUATE) Large Platelets Few Sodium Level 138 mmol/L (136-145) Potassium Level 3.9 mmol/L (3.5-5.1) Chloride Level 102 mmol/L (98-107) Carbon Dioxide Level 27 mmol/L (21-32) Anion Gap 9 (6-14) Blood Urea Nitrogen 19 mg/dL (8-26) Creatinine 1.3 mg/dL (0.7-1.3) Estimated GFR (Cockcroft-Gault) 58.2 BUN/Creatinine Ratio 15 (6-20) Glucose Level 119 mg/dL (70-99) Calcium Level 8.6 mg/dL (8.5-10.1) Total Bilirubin 0.8 mg/dL (0.2-1.0) Aspartate Amino Transf (AST/SGOT) 39 U/L (15-37) Alanine Aminotransferase (ALT/SGPT) 54 U/L (16-63) Alkaline Phosphatase 78 U/L (46-116) Total Protein 7.4 g/dL (6.4-8.2) Albumin 3.0 g/dL (3.4-5.0) Albumin/Globulin Ratio 0.7 (1.0-1.7) Lactic Acid Level 2.2 mmol/L (0.4-2.0) 0.7 mmol/L (0.4-2.0) Laboratory Tests Test 10/15/19 10:50 10/15/19 11:20 10/15/19 20:40 10/16/19 00:00 Urine Collection Type Unknown Urine Color Yany Urine Clarity Clear Urine pH 5.5 (<5.0-8.0) Urine Specific [place] >=1.030 (1.000-1.030) Urine Protein 100 mg/dL (NEG-TRACE) Urine Glucose (UA) Negative mg/dL (NEG) Urine Ketones (Stick) >=80 mg/dL (NEG) Urine Blood Small (NEG) Urine Nitrite Negative (NEG) Urine Bilirubin Small (NEG) Urine Urobilinogen Dipstick 0.2 mg/dL (0.2 mg/dL) Urine Leukocyte Esterase Trace (NEG) Urine RBC 1-2 /HPF (0-2) Urine WBC 11-20 /HPF (0-4) Urine Squamous Epithelial Cells Few /LPF Urine Bacteria Few /HPF (0-FEW) Urine Mucus Mod /LPF White Blood Count 14.4 x10^3/uL (4.0-11.0) Red Blood Count 4.58 x10^6/uL (4.30-5.70) Hemoglobin 13.9 g/dL (13.0-17.5) Hematocrit 40.5 % (39.0-53.0) Mean Corpuscular Volume 89 fL (79-100) Mean Corpuscular Hemoglobin 30 pg (25-35) Mean Corpuscular Hemoglobin Concent 34 g/dL (31-37) Red Cell Distribution Width 13.3 % (11.5-14.5) Platelet Count 160 x10^3/uL (140-400) Neutrophils (%) (Auto) 89 % (31-73) Lymphocytes (%) (Auto) 4 % (24-48) Monocytes (%) (Auto) 7 % (0-9) Eosinophils (%) (Auto) 0 % (0-3) Basophils (%) (Auto) 0 % (0-3) Neutrophils # (Auto) 12.8 x10^3/uL (1.8-7.7) Lymphocytes # (Auto) 0.5 x10^3/uL (1.0-4.8) Monocytes # (Auto) 1.0 x10^3/uL (0.0-1.1) Eosinophils # (Auto) 0.0 x10^3/uL (0.0-0.7) Basophils # (Auto) 0.0 x10^3/uL (0.0-0.2) Segmented Neutrophils % 85 % (35-66) Lymphocytes % 8 % (24-48) Monocytes % 7 % (0-10) Dohle Bodies Few Platelet Estimate Adequate (ADEQUATE) Large Platelets Few Sodium Level 138 mmol/L (136-145) Potassium Level 3.9 mmol/L (3.5-5.1) Chloride Level 102 mmol/L (98-107) Carbon Dioxide Level 27 mmol/L (21-32) Anion Gap 9 (6-14) Blood Urea Nitrogen 19 mg/dL (8-26) Creatinine 1.3 mg/dL (0.7-1.3) Estimated GFR (Cockcroft-Gault) 58.2 BUN/Creatinine Ratio 15 (6-20) Glucose Level 119 mg/dL (70-99) Calcium Level 8.6 mg/dL (8.5-10.1) Total Bilirubin 0.8 mg/dL (0.2-1.0) Aspartate Amino Transf (AST/SGOT) 39 U/L (15-37) Alanine Aminotransferase (ALT/SGPT) 54 U/L (16-63) Alkaline Phosphatase 78 U/L (46-116) Total Protein 7.4 g/dL (6.4-8.2) Albumin 3.0 g/dL (3.4-5.0) Albumin/Globulin Ratio 0.7 (1.0-1.7) Lactic Acid Level 2.2 mmol/L (0.4-2.0) 0.7 mmol/L (0.4-2.0) Medications Current Medications Sodium Chloride 1,000 ml @ 1,000 mls/hr 1X ONCE IV Last administered on 10/15/19at 11:30; Start 10/15/19 at 11:15; Stop 10/15/19 at 12:14; Status DC Ceftriaxone Sodium (Rocephin) 1 gm 1X ONCE IVP Last administered on 10/15/19at 11:29; Start 10/15/19 at 11:15; Stop 10/15/19 at 11:16; Status DC Ondansetron HCl (Zofran) 4 mg PRN Q8HRS PRN IV NAUSEA/VOMITING; Start 10/15/19 at 12:30; Stop 10/16/19 at 12:29 Sodium Chloride 1,000 ml @ 75 mls/hr [id number] IV Last administered on 10/15/19at 12:45; Start 10/15/19 at 12:19; Stop 10/15/19 at 20:08; Status DC Ketorolac Tromethamine (Toradol 30mg Vial) 30 mg 1X ONCE IVP Last administered on 10/15/19at 12:45; Start 10/15/19 at 12:30; Stop 10/15/19 at 12:31; Status DC Phenazopyridine HCl (Pyridium) 200 mg 1X ONCE PO Last administered on 10/15/19at 12:45; Start 10/15/19 at 12:30; Stop 10/15/19 at 12:31; Status DC Hydromorphone HCl (Dilaudid) 0.75 mg PRN Q3HRS PRN IVP PAIN Last administered on 10/16/19at 01:10; Start 10/15/19 at 20:00 Acetaminophen (Tylenol) 650 mg PRN Q6HRS PRN PO MILD PAIN / TEMP > 100.3'F Last administered on 10/15/19at 20:24; Start 10/15/19 at 20:00 Ceftriaxone Sodium (Rocephin) 1 gm 1X ONCE IVP Last administered on 10/15/19at 21:12; Start 10/15/19 at 21:00; Stop 10/15/19 at 21:01; Status DC Ceftriaxone Sodium (Rocephin) 2 gm Q24H IVP ; Start 10/16/19 at 20:00 Sodium Chloride 1,000 ml @ 125 mls/hr CONT PRN IV HYDRATION Last administered on 10/16/19at 06:07; Start 10/15/19 at 20:15 Active Scripts Active Ciprofloxacin Hcl 500 Mg Tablet 1 Tab PO BID Culturelle (Lactobacillus Rhamnosus Gg) 1 Each Cap.sprink 1 Cap PO BID 30 Days Dok (Docusate Sodium) 100 Mg Capsule 100 Mg PO BID 10 Days Tylenol (Acetaminophen) 325 Mg Tablet 650 Mg PO PRN Q4HRS PRN 10 Days Thera-M Tablet (Multivits,Ca,Minerals/Iron/Fa) 1 Each Tablet 1 Tab PO DAILY Hydrocodone-Apap 7.5-325 (Hydrocodone Bit/Acetaminophen) 1 Tab Tablet 1 Tab PO PRN Q4HRS PRN Aspirin 325 Mg Tablet 325 Mg PO [id number] Zyvox (Linezolid) 600 Mg Tablet 600 Mg PO BID Vitals/I & O Vital Sign - Last 24 Hours 10/15/19 10/15/19 10/15/19 10/15/19 11:06 11:59 12:29 13:29 Temp 100.2 100.2 Pulse 107 104 102 102 Resp 20 B/P (MAP) 125/79 (94) Pulse Ox 99 98 98 98 O2 Delivery Room Air 10/15/19 10/15/19 10/15/19 10/15/19 13:59 15:00 19:00 20:00 Temp 99.6 98.8 103.1 99.6 98.8 103.1 Pulse 98 98 108 Resp 18 20 B/P (MAP) 113/70 (84) 122/80 (94) Pulse Ox 98 96 95 O2 Delivery Room Air Room Air O2 Flow Rate 95.0 10/15/19 10/15/19 10/15/19 10/16/19 20:23 20:53 23:00 01:10 Temp 99.3 99.3 Pulse 106 Resp 20 20 18 20 B/P (MAP) 97/64 (75) Pulse Ox 92 O2 Delivery Room Air Room Air Room Air 10/16/19 10/16/19 01:40 03:00 Temp 98.2 98.2 Pulse 91 Resp 20 18 B/P (MAP) 125/84 (98) Pulse Ox 92 O2 Delivery Room Air Room Air Intake and Output 10/15/19 10/15/19 10/16/19 15:00 23:00 07:00 Intake Total 1200 ml 1000 ml Output Total 200 ml 400 ml Balance 1000 ml 600 ml Justicifation of Admission Dx: Justifications for Admission: Justification of Admission Dx: N/A ASHLEE MORRIS MD Oct 16, 2019 08:07
[2019-10-16] MEDS: PSYLLIUM HUSK (SUGAR FREE) 1 PKT PACKET PO SCH (08:49)
[2019-10-16] MEDS: TAMSULOSIN 0.4 MG CAP.ER.24H. PO SCH ×2 (08:50→21:13)
[2019-10-16] MEDS: POLYETHYLENE GLYCOL 3350 17 GM PACKET. PO SCH (08:50)
[2019-10-16] MEDS: ACETAMINOPHEN 325 MG TABLET. PO PRN (08:56)
[2019-10-16] MEDS ORDERED: CIPROFLOXACIN 400MG PREMIX 200 ML IV ONE (12:00)
--- NOTE | 2019-10-16 12:04 | NUR ---
SW following. Discussed with RN, pt from home with , room air, regular diet. Pt on IV abx. RN advised no SW needs at this time, pt wanting to discharge home. SW will continue to follow, should any discharge needs arise.
[2019-10-16] MEDS: KETOROLAC 30 MG/ML VIAL. IVP PRN (13:18)
--- NOTE | 2019-10-16 13:31 | PDOC ---
Infectious Disease Note Vital Signs: Vital Signs Vital Signs Date Time Temp Pulse Resp B/P (MAP) Pulse Ox O2 Delivery O2 Flow Rate FiO2 10/16/19 11:00 98.2 84 17 116/73 (87) 98 Room Air 98.2 10/15/19 20:00 95.0 Medications: Inpatient Meds: Current Medications Medications (Trade) Dose Ordered Sig/Sindhu Start Time Stop Time Status Last Admin Dose Admin Acetaminophen (Tylenol) 650 mg PRN Q6HRS PRN 10/15/19 20:00 10/16/19 08:56 650 MG Ceftriaxone Sodium (Rocephin) 2 gm Q24H 10/16/19 20:00 Ciprofloxacin/ Dextrose 200 ml @ 200 mls/hr 1X ONCE 10/16/19 12:00 10/16/19 12:59 DC Hydromorphone HCl (Dilaudid) 0.75 mg PRN Q3HRS PRN 10/15/19 20:00 10/16/19 01:10 0.75 MG Ketorolac Tromethamine (Toradol 30mg Vial) 30 mg PRN Q6HRS PRN 10/16/19 09:15 10/21/19 09:14 Lactobacillus Rhamnosus (Culturelle) 1 cap BID 10/16/19 21:00 Ondansetron HCl (Zofran) 4 mg PRN Q8HRS PRN 10/15/19 12:30 10/16/19 12:29 DC Phenazopyridine HCl (Pyridium) 200 mg 1X ONCE 10/15/19 12:30 10/15/19 12:31 DC 10/15/19 12:45 200 MG Polyethylene Glycol (miraLAX PACKET) 17 gm DAILY 10/16/19 09:00 10/16/19 08:50 17 GM Psyllium Hydrophilic Mucilloid (Metamucil Fiber Packet) 1 pkt DAILY 10/16/19 09:00 10/16/19 08:49 1 PKT Sodium Chloride 1,000 ml @ 125 mls/hr CONT PRN 10/15/19 20:15 10/16/19 06:07 125 MLS/HR Tamsulosin HCl (Flomax) 0.4 mg BID 10/16/19 09:00 10/16/19 08:50 0.4 MG Labs: Lab Laboratory Tests Test 10/15/19 20:40 10/16/19 00:00 Lactic Acid Level 2.2 mmol/L (0.4-2.0) 0.7 mmol/L (0.4-2.0) Objective: Assessment: Pt seen and examined ID consult dictated Plan: Plan of Care Thank you see orders KATH BEAR MD Oct 16, 2019 13:30
--- NOTE | 2019-10-16 15:11 | CONS ---
DATE OF CONSULTATION: 10/16/2019 REFERRING PHYSICIAN: Dr. Tate. REASON FOR CONSULTATION: UTI, possible. HISTORY OF PRESENT ILLNESS: A 49-year-old male who was doing well until 2-3 days ago when he started having difficulty emptying his bladder with burning sensation and blood in urine. He was given Cipro, which did not help with his symptoms, so he presented to the ER. He denied any nausea, vomiting, diarrhea, back pain, flank pain, shortness of breath, cough, chest pain with deep breathing, dizziness, headache or rash. He was started on ceftriaxone. This morning, he got a dose of Cipro. The patient had a fever of 101, now afebrile on room air. White count was 12.8, today is 14.4. Creatinine was 1.4, now is 1.3. He had lactic acidosis at 2.2. UA showed 1-4 wbc's on 10/13/2019, today is 11-20, leukocyte esterase trace. Urine culture negative so far. Blood culture negative. The patient underwent CT of the abdomen and pelvis, which showed mild stranding identified about the bilateral kidneys could be urinary tract infection correlate with lab values. ID consult has been requested for antibiotic management. Today, the patient states he feels a little better, still has pressure whenever he wants to pass urine. PAST MEDICAL HISTORY: Knee cellulitis, previous UTI. 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 FAMILY HISTORY: As per HPI. 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 CURRENT MEDICATIONS: Ceftriaxone, 1 dose of Cipro, was on Cipro as outpatient. Other medications reviewed in medication list. Also had Zyvox. REVIEW OF SYSTEMS: Negative except for above in HPI. PHYSICAL EXAMINATION: VITAL SIGNS: Temperature 98.2, pulse 84, respiratory rate 17, blood pressure 116/73, T-max 103.1. GENERAL: Alert and oriented x 3 male lying in bed comfortably, in no acute distress, pleasant, cooperative. HEENT: Normocephalic, atraumatic, anicteric. NECK: Supple, no JVD. LUNGS: Clear bilaterally. No wheezing. HEART: S1, S2. No gallops or murmurs. ABDOMEN: Soft, nontender, nondistended, no rebound, no guarding. BACK: Reveals normal curvature. No CVA tenderness. EXTREMITIES: No edema, no cyanosis. NEUROLOGIC: Alert and oriented x 3, grossly nonfocal. PSYCHIATRIC: Cooperative, appropriate mood and affect. LABORATORY DATA: UA shows trace leukocyte esterase, 11-20 wbc's. White count 14.4, hemoglobin 13.9, hematocrit 40.5, platelets of 160. Sodium 138, potassium 3.9, chloride 102, bicarbonate 27, BUN 19, creatinine 1.3, lactate 2.2. LFTs noted. MICROBIOLOGY: Urine culture, 10/13/2019, no growth. 10/15/2019, urine, no growth. Blood culture pending at this time. IMAGING: Abdominal and pelvic CT as above. IMPRESSION: 1. Fever. 2. Leukocytosis. 3. Urinary hesitancy, UTI, Possibly Pyelonephritis 4. Was treated with Cipro and Zyvox as outpatient. RECOMMENDATIONS: 1. Start Zosyn and doxycycline. 2. Discontinue ceftriaxone. 3. Status post one dose of Cipro. 4. Follow up labs and cultures. 5. Continue supportive care. 6. The patient may need Urology evaluation. 7. Continue supportive care. Thank you for allowing me to participate in this patient's care. If you have any questions, do not hesitate to contact me. KATH BEAR MD DR: ALBAN/julian JOB#: [id number] / [id number] KARLO
[2019-10-16] MEDS: DOXYCYCLINE HYCLATE 100 MG TABLET PO SCH ×2 (15:16→21:13)
[2019-10-16] MEDS: PIPERACILLIN/TAZOBACTAM 3.375 GM in IV NORMAL SALINE 50ML 50 ML IV SCH (17:33)
[2019-10-16] MEDS ORDERED: cefTRIAXone IV Push 2 GM VIAL. IVP SCH (20:00)
[2019-10-16] MEDS: LACTOBACILLUS RHAMNOSUS GG 1 CAPSULE. PO SCH (21:13)
[2019-10-16] MEDS: PHENAZOPYRIDINE 200 MG TABLET. PO PRN (21:13)
[2019-10-17] MEDS: PIPERACILLIN/TAZOBACTAM 3.375 GM in IV NORMAL SALINE 50ML 50 ML IV SCH ×3 (00:20→11:56)
[2019-10-17] MEDS: HYDROmorphone 2 MG/ML VIAL IVP PRN (00:26)
[2019-10-17 03:00] VITALS: BP 115/85
[2019-10-17] MEDS: PHENAZOPYRIDINE 200 MG TABLET. PO PRN ×2 (06:32→16:01)
[2019-10-17 07:05] VITALS: BP 134/80
[2019-10-17] MEDS: LACTOBACILLUS RHAMNOSUS GG 1 CAPSULE. PO SCH (08:38)
[2019-10-17] MEDS: IV NORMAL SALINE 1000ML BAG 1,000 ML IV PRN (08:38)
[2019-10-17] MEDS: PSYLLIUM HUSK (SUGAR FREE) 1 PKT PACKET PO SCH (08:38)
[2019-10-17] MEDS: POLYETHYLENE GLYCOL 3350 17 GM PACKET. PO SCH (08:38)
[2019-10-17] MEDS: TAMSULOSIN 0.4 MG CAP.ER.24H. PO SCH (08:38)
[2019-10-17] MEDS: DOXYCYCLINE HYCLATE 100 MG TABLET PO SCH (08:38)
[2019-10-17] MEDS: KETOROLAC 30 MG/ML VIAL. IVP PRN (08:44)
--- NOTE | 2019-10-17 10:29 | NUR ---
SW following. Discussed with RN, pt wanting to discharge. Currently on IV zosyn,doxy. RN speaking with Dr. Leiva to determine if pt can switch to orals and discharge home. SW will continue to follow.
--- NOTE | 2019-10-17 10:53 | PDOC ---
Infectious Disease Note Subjective: Subjective Patient feels better today Suprapubic pressure and dysuria has improved No groin pain No fever last 24 hours Denies fever, nausea, vomiting, shortness of breath, diarrhea, abdominal pain, rash Otherwise as above Vital Signs: Vital Signs Vital Signs Date Time Temp Pulse Resp B/P (MAP) Pulse Ox O2 Delivery O2 Flow Rate FiO2 10/17/19 08:00 Room Air 10/17/19 07:05 98.8 85 16 134/80 (98) 95 98.8 10/16/19 20:00 95.0 Physical Exam: PHYSICAL EXAM GENERAL: Alert and oriented x 3 male lying in bed comfortably, in no acute distress, pleasant, cooperative. HEENT: Normocephalic, atraumatic, anicteric. NECK: Supple, no JVD. LUNGS: Clear bilaterally. No wheezing. HEART: S1, S2. No gallops or murmurs. ABDOMEN: Soft, nontender, nondistended, no rebound, no guarding. BACK: Reveals normal curvature. No CVA tenderness. EXTREMITIES: No edema, no cyanosis. NEUROLOGIC: Alert and oriented x 3, grossly nonfocal. PSYCHIATRIC: Cooperative, appropriate mood and affect. Medications: Inpatient Meds: Current Medications Medications (Trade) Dose Ordered Sig/Sindhu Start Time Stop Time Status Last Admin Dose Admin Acetaminophen (Tylenol) 650 mg PRN Q6HRS PRN 10/15/19 20:00 10/16/19 08:56 650 MG Ceftriaxone Sodium (Rocephin) 2 gm Q24H 10/16/19 20:00 10/16/19 13:21 DC Ciprofloxacin/ Dextrose 200 ml @ 200 mls/hr 1X ONCE 10/16/19 12:00 10/16/19 12:59 DC 10/16/19 13:18 200 MLS/HR Doxycycline Hyclate (Vibra-Tab) 100 mg BID 10/16/19 14:00 10/17/19 08:38 100 MG Hydromorphone HCl (Dilaudid) 0.75 mg PRN Q3HRS PRN 10/15/19 20:00 10/17/19 00:26 0.75 MG Ketorolac Tromethamine (Toradol 30mg Vial) 30 mg PRN Q6HRS PRN 10/16/19 09:15 10/21/19 09:14 10/17/19 08:44 30 MG Lactobacillus Rhamnosus (Culturelle) 1 cap BID 10/16/19 21:00 10/17/19 08:38 1 CAP Ondansetron HCl (Zofran) 4 mg PRN Q8HRS PRN 10/15/19 12:30 10/16/19 12:29 DC Phenazopyridine HCl (Pyridium) 200 mg PRN TID PRN 10/16/19 20:15 10/17/19 06:32 200 MG Piperacillin Sod/ Tazobactam Sod 3.375 gm/Sodium Chloride 50 ml @ 100 mls/hr Q6HRS 10/16/19 18:00 10/17/19 06:00 100 MLS/HR Polyethylene Glycol (miraLAX PACKET) 17 gm DAILY 10/16/19 09:00 10/17/19 08:38 17 GM Psyllium Hydrophilic Mucilloid (Metamucil Fiber Packet) 1 pkt DAILY 10/16/19 09:00 10/17/19 08:38 1 PKT Sodium Chloride 1,000 ml @ 125 mls/hr CONT PRN 10/15/19 20:15 10/17/19 08:38 125 MLS/HR Tamsulosin HCl (Flomax) 0.4 mg BID 10/16/19 09:00 10/17/19 08:38 0.4 MG Objective: Assessment: 1. Fever. 2. Leukocytosis. 3. Urinary hesitancy, UTI, possible prostatitis 4. Was on Cipro and Augmentin as outpatient. Plan: Plan of Care Zosyn and doxycycline. Status post one dose of Cipro and Ceftriaxone. Follow up labs and cultures. Continue supportive care. Prostate ultrasound not available here per radiology D/W Radiology CT A/P possible BPH, no other abn seen D/W DR Sandoval, pt is agreeable with PSA may need urology evaluation, not available here Continue supportive care. KATH BEAR MD Oct 17, 2019 10:53
[2019-10-17 11:13] VITALS: BP 123/84
[2019-10-17] MEDS ORDERED: DOXY100T PO (14:56)
[2019-10-17] MEDS ORDERED: PHEN-444 PO (14:56)
[2019-10-17] MEDS ORDERED: AMOX1TAB61 PO (14:56)
[2019-10-17] MEDS ORDERED: TAMS0.4C97 PO (14:56)
[2019-10-17 15:00] VITALS: BP 123/72
--- NOTE | 2019-10-17 15:00 | PDOC3 ---
Discharge Summary Visit Information Date of Admission: Oct 15, 2019 Date of Discharge: Oct 17, 2019 Admitting Diagnosis Comment: Recurrent UTI and pyelonephritis Final Diagnosis Problems Medical Problems: (1) Pyelonephritis Status: Acute Recurrent UTI and pyelonephritis - likely from prostatitis Prostatitis, added flomax. Sepsis resolved - febrile to 103. Brief Hospital Course Allergies Allergies Coded Allergies Type Severity Reaction Last Updated Verified vancomycin Allergy Intermediate RASH/ITCHING 04/17/19 Yes Vital Signs Vital Signs Date Time Temp Pulse Resp B/P (MAP) Pulse Ox O2 Delivery O2 Flow Rate FiO2 10/17/19 11:13 98.3 78 14 123/84 (97) 95 Room Air 98.3 10/16/19 20:00 95.0 Lab Results Laboratory Tests Test 10/15/19 20:40 10/16/19 00:00 Lactic Acid Level 2.2 mmol/L (0.4-2.0) 0.7 mmol/L (0.4-2.0) Brief Hospital Course Mr. Zavaleta is a 49 old male with no PMHx recently treated for pyelonephritis on last Monday. He was sent home with prescription for ciprofloxacin he also has p.o. Zyvox His symptoms just really have not ever gotten much better He has been drinking lots of fluids He tried increasing some of his home meds but that did not seem to help States his symptoms are worse when he is urinating. Pain is in his perineal area. No flank pain Fever 103 Fahrenheit overnight. He still has pain in his perineal area today, but it is improved. Patient was seen in consultation by Dr. Conde from infectious disease and broad- spectrum antibiotics were initiated with doxycycline and Zyvox given the recurrent nature of his infection. The patient seemed to turn the corner around when he was started on Pyridium and this seemed to get his symptoms much better control as far as pain goes. He felt quite well on the day of discharge and after requesting recommendations from infectious disease internet marketing consultant the decision was made to discharge patient with close monitoring in the outpatient setting. PSA test was requested by her internet marketing consultant in is not yet available at the time of this note for review. I have encouraged the patient to follow-up with primary care physician in the community or with Dr. Conde in the outpatient setting for confirmation of resolution of his infection. Signs and symptoms of concern and when to seek medical attention were discussed with the patient prior to dis missal all of his concerns were addressed to the best of my abilities Assessment Assessment Gen.: well-developed well-nourished in no apparent distress Head: Normal shape atraumatic Eyes: Pupils equal reactive to light and accommodation, normal conjunctivae and lids Ears: Normal shape Nose: Normal shape no trauma Mouth: No exudates of the back of throat no thrush no lesions Neck: Supple no JVD no carotid bruit or lymphadenopathy no thyromegaly Chest: Lungs clear to auscultation with good inspiratory effort no crackles rales or rhonchi Cardiovascular: S1-S2 regular rhythm no murmurs gallops or rubs Abdomen: Bowel sounds present soft nontender no hepatosplenomegaly appreciated sign Extremities: No clubbing no cyanosis no edema peripheral pulses palpated bilaterally Neurological: Alert awake oriented in person time place and situation, cranial nerves II through XII intact, no motor or sensory deficits appreciated Psych: Appropriate mood, cooperative IMAGING REPORT Signed PATIENT: MYNOR ZAVALETA AACCOUNT: [id number] : 1970 LOCATION: ER AGE: 49 SEX: M EXAM STATUS: REG ER ORD. PHYSICIAN: KAYE CASTELLANO APRN REASON: BLOOD IN URINE PROCEDURE: CT ABD PELV W/ IV CONTRST ONLY Examination: CT of the abdomen pelvis with IV contrast HISTORY: History of blood in the uterine COMPARISON: None available Technique: Axial CT images of the abdomen pelvis were performed with IV contrast. Coronal and sagittal reformats are performed Exposure: One or more of the following individualized dose reduction techniques were utilized for this examination: 1. Automated exposure control 2. Adjustment of the mA and/or kV according to patient size 3. Use of iterative reconstruction technique FINDINGS: Minimal bibasilar lung atelectasis. No evidence of free air identified in the abdomen. The liver, spleen, adrenals grossly appears unremarkable. Gallbladder is mildly distended. The stomach is mildly distended. The visualized pancreas grossly appears unremarkable. The small bowel is nondilated. Probable small duodenal diverticulum third part of the duodenum. Feces and gas noted in the colon. The appendix is normal. The bilateral kidneys enhance symmetrically. Minimal fat stranding identified about the bilateral kidneys. Urinary bladder is mildly distended. The caliber of the aorta grossly appears unremarkable. Mild degenerative changes thoracal lumbar spine. Bilateral L5 spondylolysis. IMPRESSION: 1. Mild fat stranding identified about the bilateral kidneys could be urinary tract infection. Correlate with lab values. Electronically signed by: Mingo Larsen MD (10/13/2019 1:40 PM) [id number] Discharge Information Condition at Discharge: Improved Follow Up: Weeks Disposition/Orders: D/C to Home Scheduled Amoxicillin/Potassium Clav (Augmentin 875-125 Tablet) 1 Each Tablet, 1 TAB PO BID for pyelonephritis for 10 Days, #20 Ref 0 Prescribed by: DOYLE CLOUD MD on 10/17/19 1456 Aspirin (Aspirin) 325 Mg Tablet, 325 MG PO [id number] for primary prevention, #60 Prescribed by: VERONICA BOO on 04/23/19 0851 Docusate Sodium (Dok) 100 Mg Capsule, 100 MG PO BID for hard stools for 10 Days, #20 Prescribed by: ALEJANDRA NAJERA MD on 04/24/19 1336 Doxycycline Hyclate (Doxycycline Hyclate) 100 Mg Tablet, 100 MG PO BID for pyelonephritis for 7 Days, #14 Prescribed by: DOYLE CLOUD MD on 10/17/19 1456 Lactobacillus Rhamnosus Gg (Culturelle) 1 Each Cap.sprink, 1 CAP PO BID for supplement for 30 Days, #60 Prescribed by: ALEJANDRA NAJERA MD on 04/24/19 1336 Multivits,Ca,Minerals/Iron/Fa (Thera-M Tablet) 1 Each Tablet, 1 TAB PO DAILY for mvi, wound healing, #60 Prescribed by: VERONICA BOO on 04/23/19 0851 Tamsulosin Hcl (Flomax) 0.4 Mg Cap.er.24h, 0.4 MG PO BID for urinary retention for 30 Days, #60 Prescribed by: DOYLE CLOUD MD on 10/17/19 1456 Scheduled PRN Acetaminophen (Tylenol) 325 Mg Tablet, 650 MG PO PRN Q4HRS PRN for TEMP OVER 100.4F OR MILD PAIN for 10 Days, #30 Prescribed by: ALEJANDRA NAJERA MD on 04/24/19 1336 Hydrocodone Bit/Acetaminophen (Hydrocodone-Apap 7.5-325 ) 1 Tab Tablet, 1 TAB PO PRN Q4HRS PRN for MODERATE PAIN, #20 Prescribed by: VERONICA BOO on 04/23/19 0851 Phenazopyridine Hcl (Phenazopyridine Hcl) 200 Mg Tablet, 200 MG PO PRN TID PRN for URINARY PAIN for 1 Days, #4 Prescribed by: DOYLE CLOUD MD on 10/17/19 1456 Discontinued Medications Ciprofloxacin Hcl (Ciprofloxacin Hcl) 500 Mg Tablet, 1 TAB PO BID, #20 Prescribed by: KAYE CASTELLANO APRN on 10/13/19 1402 Linezolid (Zyvox) 600 Mg Tablet, 600 MG PO BID for cellulitis rt knee, #14 Prescribed by: VERONICA BOO on 04/23/19 0851 Justicifation of Admission Dx: Justifications for Admission: Justification of Admission Dx: N/A DOYLE CLOUD MD Oct 17, 2019 15:00
[2019-10-17] MEDS ORDERED: MELO7.5T29 PO (15:18)
--- NOTE | 2019-10-17 16:06 | NUR ---
Discharge Note: MYNOR ZAVALETA Discharge instructions and discharge home medications reviewed with Patient and a copy given. All questions have been answered and understanding verbalized. The following instructions and handouts were given: Patient given education regarding follow ups and medications. Discontinued lines and drains: IV removed per protocol. Patient discharged home with .
== END 2019-10-17 16:00 | disposition home or self-care (01) | DRG 872 ==
LOC: ER 10:17 → ED HOLD 12:17 → 5 NORTH 13:39
PROVIDERS: ADMIT Internal Medicine; ATTEND Internal Medicine
DX: A41.9 Sepsis, unspecified organism (principal); L03.115 Cellulitis of right lower limb; N12 Tubulo-interstitial nephritis, not specified as acute or chronic; E87.2 Acidosis; Z88.1 Allergy status to other antibiotic agents; Z82.49 Family history of ischemic heart disease and other diseases of the circulatory system; N41.9 Inflammatory disease of prostate, unspecified; F41.9 Anxiety disorder, unspecified
CPT/HCPCS: 36415; 80053; 81001; 83605; 85007; 85025; 87040; 87086; J0696; J0744; J1170; J1885; J2543; J7030; G0378